=== PATIENT | female | born 1950 | race Caucasian/White ===

== ENCOUNTER 2021-01-18 09:06 | Outpatient (REF) | payer MEDICARE, SELFPAY ==
--- NOTE | ~2021-01-18 | MM_ITS ---
EXAMINATION: MM SCREENING DIGITAL BREAST TOMOSYNTHESIS, BILATERAL CLINICAL INFORMATION: Screening. Asymptomatic. The lifetime risk of breast cancer based on the Tyrer-Cuzick Model is 3.4%. COMPARISON: Mammography: May 28, 2019 and studies dating back to May 25, 2010 TECHNIQUE: Digital breast tomosynthesis is performed in both the craniocaudal and mediolateral oblique views along with computer-aided detection (CAD). Synthesized 2D images are generated from the tomosynthesis. FINDINGS: The breasts are almost entirely fatty (ACR BI-RADS breast composition Category a). There are no significant masses, abnormal calcifications, or other abnormalities. MM/MM tomosynthesis screening BI IMPRESSION: There are no significant changes from prior study. ASSESSMENT: BI-RADS 1: Negative RECOMMENDATION: Routine annual mammography screening. This patient's information was entered into a reminder system with a target due date for their next mammogram.
--- NOTE | ~2021-01-18 | MM_ITS ---
EXAMINATION: BONE DENSITOMETRY CLINICAL INDICATION: History of osteopenia. Other specified disorders of bone density and structure. Postmenopausal. COMPARISON: Previous BD dated 01/19/2018 and baseline BD dated 01/06/2013. TECHNIQUE: Using a IAT-Auto DXA System (software version: 13.1) manufactured by [email or web address], dual-energy x-ray absorptiometry was performed of the lumbar spine and left hip. The images are of good technical quality. Summary results are attached. FINDINGS: AP SPINE L1-L4: Current: BMD 1.050 g/cm2, Z-score -0.1, T-score 1.1, osteopenia, 9.6% increase from previous, 3.2% decrease from baseline (<5% change is not significant). Prior: BMD 0.958 g/cm2. Baseline: BMD 1.085 g/cm2. LEFT FEMUR, NECK: Current: BMD 0.711 g/cm2, Z-score -1.0, T-score -2.4, osteopenia. Prior: BMD 0.750 g/cm2. Baseline: BMD 0.820 g/cm2. LEFT FEMUR, TOTAL: Current: BMD 0.793 g/cm2, Z-score -0.6, T-score -1.7, osteopenia, 3.3% decrease from previous, 10.4% decrease from baseline (<5% change is not significant). Prior: BMD 0.820 g/cm2. Baseline: BMD 0.885 g/cm2. IDENTIFIED RISK FACTORS: Family history, (parent hip fracture). History of fracture, (adult). Anticonvulsant. Height loss. Recurrent falls. Renal disease. Bilateral oophorectomy. Hysterectomy. HISTORY OF FRACTURE: Ribs. MEDICATIONS: Calcium or multivitamin. Vitamin D. MM/XR DEXA axial skeleton IMPRESSION: 1. DIAGNOSIS: Osteopenia based on the lowest T-score value of -2.4 in the femoral neck applying World Health Organization criteria. 2. 10-YEAR FRACTURE RISK PREDICTION, FRAX: Major osteoporotic fracture (clinical spine, forearm, hip or shoulder) 33.0%. Hip fracture 13.9%. 3. Treatment Recommendations: NOF guidelines recommend consideration for treatment in postmenopausal women and men age 50 and older presenting with the following: -A hip or vertebral (clinical or morphometric) fracture. -T-score less than or equal to -2.5 at the femoral neck or spine after appropriate evaluation to exclude secondary causes. -Low bone mass at the hip or spine and a 10-year fracture probability by FRAX of greater than or equal to 3% for hip fracture or greater than or equal to 20% for major osteoporotic fracture based on the [place] adapted WHO algorithm. 4. Other Recommendations: All treatment decisions require clinical judgment and consideration of individual patient factors, including patient preferences, comorbidities, previous drug use, risk factors not captured in the FRAX model (e.g. frailty, falls, vitamin D deficiency, increased bone turnover, interval significant decline in bone density) and possible under or overestimation of fracture risk by FRAX. Additional medical evaluation for secondary cause of low bone mineral density may be appropriate. FUTURE SCAN RECOMMENDATION: People with diagnosed cases of osteoporosis or at high risk for fracture should have regular bone mineral density tests. For patients eligible for Medicare, routine testing is allowed once every 2 years. The testing frequency can be increased to one year for patients who have rapidly progressing disease, those who are receiving or discontinuing medical therapy to restore bone mass, or have additional risk factors.
== END 2021-01-18 09:07 | disposition home or self-care (01) ==
LOC: HO.MAMMO 09:06
PROVIDERS: PCP Nurse Practitioner Family; Visit Provider Nurse Practitioner Family
DX: Z12.31 Encounter for screening mammogram for malignant neoplasm of breast (principal); Z13.820 Encounter for screening for osteoporosis; Z78.0 Asymptomatic menopausal state; M85.80 Other specified disorders of bone density and structure, unspecified site
CPT/HCPCS: 77063; 77067; 77080

== ENCOUNTER 2021-06-27 11:21 | Outpatient (REF) | payer MEDICARE, SELFPAY ==
--- NOTE | ~2021-06-27 | US_ITS ---
EXAMINATION: US RETROPERITONEAL LIMITED (RENAL ONLY) CLINICAL INFORMATION: Chronic kidney disease. COMPARISON: None TECHNIQUE: Real-time imaging of the kidneys. FINDINGS: RIGHT KIDNEY: 11.4 x 5.1 x 5.5 cm (SAG x AP x TRV). The kidney is normal in size, contour, and echogenicity. Renal cortical thickness is normal. No calculi or focal parenchymal lesions. No hydronephrosis. There is mild pelvic fullness. LEFT KIDNEY: 3.3 x 2.2 x 1.8 cm (SAG x AP x TRV). The kidneys are atrophic and small. No calculi or focal parenchymal lesions. No hydronephrosis. US/US renal BI IMPRESSION: Small atrophic left kidney. The right kidney is unremarkable except for mild fullness.
[2021-06-27 13:59] LABS: Hematocrit 43.1 % (37.0-47.0); Hemoglobin 14.1 g/dl (12.0-16.0); Mean Corpuscular HGB Conc 32.7 g/dl (31.0-35.0); Mean Platelet Volume 9.9 fL (9.4-12.3); Platelet Count 231 X10*3/uL (160-400); Red Cell Distribution Width 13.2 % (11.0-16.0); White Blood Count 4.4 X10*3/uL (4.8-10.8)
[2021-06-27 14:11] LABS: Appearance Urine CLEAR; Color Urine YELLOW; Glucose Urine UA NEG (NEG); Leukocyte Esterase Urine 2+ (NEG); Nitrite Urine NEG (NEG); Specific Gravity - Urine 1.025 (1.005-1.025); Urine Blood NEG (NEG); Urine Ketones NEG (NEG); Urine Protein NEG (NEG-TRACE)
[2021-06-27 14:14] LABS: Alanine Aminotransferase 20 U/L (0-31); Albumin Level 4.1 g/dL (3.5-5.0); Alkaline Phosphatase 73 U/L (39-117); Anion Gap 13 (12-20); Aspartate Amino Transferase 23 U/L (5-31); Bilirubin Total 0.7 mg/dL (0.0-1.0); Blood Urea Nitrogen 22 mg/dL (9-16); Calcium 9.3 mg/dL (8.4-10.2); Carbon Dioxide 26 mmol/L (22-29); Chloride 106 mmol/L (96-108); Estimated Glomerular Filt Rate 38; Glucose Random 89 mg/dL (60-115); Potassium 4.6 mmol/L (3.3-5.1); Sodium 140 mmol/L (135-145); Total Protein 7.3 g/dL (6.5-8.0)
[2021-06-27 14:30] LABS: Creatinine Urine 163.54 mg/dL; Protein/Creatinine Ratio, Ur 0.08 (<0.2); Total Protein Urine Random 13 mg/dL (<12)
[2021-06-27 14:43] LABS: Bacteria Urine 1+ /LPF; RBC Urine 0 /HPF (0); Squamous Epithelial Cell Urine 1+ /LPF; WBC Urine 30-49 /HPF (0-4)
== END 2021-06-27 11:22 | disposition home or self-care (01) ==
LOC: HO.HMGCX 11:21
PROVIDERS: Visit Provider Internal Medicine Hypertension Specialist
DX: N18.31 Chronic kidney disease, stage 3a (principal)
CPT/HCPCS: 36415; 76775; 80053; 81001; 84156; 85027

== ENCOUNTER 2021-10-03 08:53 | Outpatient (REF) | payer MEDICARE, SELFPAY ==
[2021-10-03 11:59] LABS: Estimated Glomerular Filt Rate 39
[2021-10-03 12:57] LABS: Total Volume 24 Hour Urine 2025 mL
[2021-10-03 12:58] LABS: Creatinine (CrCl) 1.33 mg/dL (0.5-1.4)
[2021-10-03 13:03] LABS: Creatinine Clearance 58.2 mL/min (85-125); Creatinine, 24Hr Urine 1.1 G/Day (1.0-2.0)
== END 2021-10-03 08:54 | disposition home or self-care (01) ==
LOC: HO.HMGCLDS 08:53
PROVIDERS: Visit Provider Internal Medicine Hypertension Specialist
DX: N18.32 Chronic kidney disease, stage 3b (principal)
CPT/HCPCS: 36415; 82565; 82575

== ENCOUNTER 2022-04-05 07:38 | Outpatient (REF) | payer MEDICARE, SELFPAY ==
--- NOTE | ~2022-04-05 | MM_ITS ---
EXAMINATION: MM SCREENING DIGITAL BREAST TOMOSYNTHESIS, BILATERAL CLINICAL INFORMATION: Screening. Asymptomatic. The lifetime risk of breast cancer based on the Tyrer-Cuzick Model is 3%. COMPARISON: Mammography: 01/18/2021, 05/28/2019, 04/17/2018 TECHNIQUE: Digital breast tomosynthesis is performed in both the craniocaudal and mediolateral oblique views along with computer-aided detection (CAD). Synthesized 2D images are generated from the tomosynthesis. FINDINGS: There are scattered areas of fibroglandular density (ACR BI-RADS breast composition Category b). There are no significant masses, abnormal calcifications, or other abnormalities. Breast tissue composition borders on predominantly fatty. Background stromal and fibroglandular densities are similar to prior studies. No architectural abnormality. There are scattered round and rim predominantly dermal calcifications again seen. No significant changes. MM/MM tomosynthesis screening BI IMPRESSION: No mammographic evidence of malignancy. ASSESSMENT: BI-RADS 2: Benign RECOMMENDATION: Routine annual mammography screening. This patient's information was entered into a reminder system with a target due date for their next mammogram.
== END 2022-04-05 07:39 | disposition home or self-care (01) ==
LOC: HO.MAMMO 07:38
PROVIDERS: Visit Provider Nurse Practitioner Family
DX: Z12.31 Encounter for screening mammogram for malignant neoplasm of breast (principal)
CPT/HCPCS: 77063; 77067

== ENCOUNTER 2022-05-01 15:22 | Emergency (ER) | payer MEDICARE, SELFPAY ==
--- NOTE | ~2022-05-01 | CT_ITS ---
EXAMINATION: CT HEAD WITHOUT CONTRAST CT FACIAL BONES WITHOUT CONTRAST CT CERVICAL SPINE WITHOUT CONTRAST CLINICAL INFORMATION: Trauma. Fall. COMPARISON: MRI brain 05/17/2012 TECHNIQUE: Imaging was performed from the skull base to vertex without intravenous administration of contrast. In addition, helical noncontrast CT imaging was acquired through the cervical spine and facial bones and source images were reviewed along with axial reconstructions and sagittal and coronal MPRs. [This CT examination was performed using dose optimization techniques as appropriate, variously including the following: *Automated exposure control *Adjustment of mA and/or kV according to patient size (this includes techniques or standardized protocols for targeted exams where dose is matched to indication/reason for exam; i.e. 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 No intracranial mass, hemorrhage, or midline shift is visualized. There is generalized global volume loss. There is mild prominence of the ventricles and the sulci . There is mild hypodensity of the periventricular white matter due to chronic small vessel ischemic disease. There are vascular calcifications of the internal carotid arteries bilaterally. No extra-axial collections are identified. FACIAL BONES: There is a comminuted fracture of the right maxillary sinus. Mildly displaced fracture of the anterior, lateral and medial valladares of the maxillary sinus. There is hemo sinus with air-fluid level present in the right maxillary sinus. The anterior lateral wall fracture of the sinus extends through the base of the frontozygomatic articulation. There is fracture of the floor of the right orbit anteriorly. This involves the orbital rim. This fracture is minimally displaced. There is also a small fracture of the posterior wall of the orbit. There is a minimally displaced fracture of the lateral wall the right orbit as well. This fracture extends to the frontozygomatic articulation. This fracture extends into the lateral and anterior wall the right frontal sinus. The fracture does not appear to extend intracranially. There is no herniation of intraorbital fat through the fracture and no entrapment of the extraocular muscles. The orbital globes and retrobulbar structures are normal. There is a slightly displaced fracture of the right zygomatic arch. Pterygoid plates are intact. Mandible and TMJ joints are normal. No fracture of the nasal bones. CERVICAL SPINE: There is no evidence of acute cervical spine fracture. Vertebral bodies remain normal in height. There is multilevel degenerative spondylosis of disc height narrowing, vertebral endplate spurs and facet joint arthrosis. No prevertebral soft tissue swelling. Large right lobe of thyroid measuring 6 cm AP with heterogeneous density of the right lobe. CT/CT cervical spine wo IV con IMPRESSION: 1. No acute intracranial abnormality. 2. Complex fracture of the facial bones involving the right orbit, right maxillary sinus and right zygomatic arch and right frontal sinus. 3. No acute abnormality of the cervical spine. 4. Enlarged right lobe of thyroid. Nonemergent thyroid ultrasound would be helpful for further evaluation.
--- NOTE | ~2022-05-01 | CT_ITS ---
EXAMINATION: CONTRAST-ENHANCED CT OF THE CHEST; CONTRAST-ENHANCED CT OF THE ABDOMEN AND PELVIS INDICATION: Fall, anterior chest wall pain COMPARISON: 05/06/2012 TECHNIQUE: 85 mL Omnipaque 350 IV contrast was utilized. Multidetector helical imaging was performed through the chest, abdomen, and pelvis. Coronal and sagittal reformatted images were created at the technologist workstation. DLP: 1027 mGy-cm DOSE LOWERING TECHNIQUES: This CT examination was performed using dose optimization techniques as appropriate, variously including the following: - Automated exposure control - Adjustment of mA and/or kV according to patient size (this includes techniques or standardized protocols for targeted exams were dose is matched to indication/reason for exam; i.e. extremities or head) - Use of iterative reconstruction technique FINDINGS: Chest: Mild subsegmental atelectasis bilaterally without additional consolidation. No pneumothorax or pleural effusion. Enlarged heterogeneous right thyroid lobe is redemonstrated. There are subcentimeter mediastinal lymph nodes within the range of normal variation. Cardiac size is within normal limits; no pericardial effusion. The thoracic aorta is tortuous. No axillary lymphadenopathy is present. There is slight cortical irregularity of the anterior left second rib suggesting fracture in the setting of trauma. Multiple degenerative endplate changes noted in the spine. Abdomen/Pelvis: The liver is homogeneous in attenuation without intrahepatic biliary ductal dilatation. Cholelithiasis is noted. The spleen, pancreas, and adrenal glands are within normal limits. Left kidney is atrophic. Cortical scarring in the lower pole of the right kidney. No obstructing renal or ureteral calculi are present. The urinary bladder is unremarkable. Status post hysterectomy. The small and large bowel are unremarkable without evidence of obstruction or pericolonic inflammatory change. No free fluid or free air is identified. Atherosclerotic calcifications noted. No retroperitoneal or pelvic lymphadenopathy is seen. Degenerative changes are noted in the spine. CT/CT abdomen pelvis w IV con IMPRESSION: 1. Slight cortical irregularity of the anterior left second rib suggesting nondisplaced fracture in the setting of trauma. 2. Enlarged, heterogeneous right thyroid lobe redemonstrated, which may be further assessed with ultrasound. 3. Cholelithiasis. 4. Atrophic left kidney.
--- NOTE | ~2022-05-01 | XR_ITS ---
EXAMINATION: XR hand wrist LT, XR hand wrist RT CLINICAL INFORMATION: Reason for Exam Fall COMPARISON: None. TECHNIQUE: 3 views bilateral hand and wrist FINDINGS: Right hand and wrist: Healed fracture deformity of the base of the fifth metacarpal. No acute fracture or dislocation. Joint spaces throughout the hand and wrist are maintained. No chondrocalcinosis or erosions. Slight ulnar subluxation of the thumb at the MCP joint consistent with age indeterminant laxity or injury of the radial collateral ligament. Minimal first CMC osteoarthritic change. Left hand and wrist: No acute fracture or dislocation. Joint spaces throughout the hand and wrist appear maintained. No erosions. No chondrocalcinosis. Small soft tissue calcification overlying the dorsal carpus on the lateral view, which may be degenerative or due to remote injury. Bandaging material overlies the radial aspect of the thenar eminence region. XR/XR hand wrist LT IMPRESSION: 1. No acute fracture or dislocation identified. 2. Chronic/healed fracture of the base of the right fifth metacarpal.
--- NOTE | ~2022-05-01 | XR_ITS ---
EXAMINATION: XR forearm RT 2V, XR shoulder RT min 2V CLINICAL INFORMATION: Reason for Exam forearm pain shoulder pain status post fall COMPARISON: None. TECHNIQUE: 3 views right shoulder; AP and lateral views right forearm FINDINGS: Right shoulder: No acute fracture or dislocation. The glenohumeral joint space is maintained. Minimal inferior glenoid rim marginal osteophyte formation. AC joint is congruent and intact with minimal subchondral sclerosis. Visualized right lung is grossly clear. Right forearm: Subtle trabecular sclerosis at the radial neck likely seen on the single view. This could represent mildly impacted fracture, uncertain acuity. Correlate clinically with symptoms related referable to the radial head/neck. No additional fracture or dislocation. XR/XR shoulder RT min 2V IMPRESSION: 1. No fracture or dislocation at the shoulder. 2. Subtle trabecular sclerosis at the radial neck, which could represent a trabecular impaction injury/fracture, uncertain acuity. Correlate clinically with symptoms referable to the region of the radial head/neck and consider dedicated elbow radiographs as indicated.
--- NOTE | ~2022-05-01 | XR_ITS ---
EXAMINATION: XR hand wrist LT, XR hand wrist RT CLINICAL INFORMATION: Reason for Exam Fall COMPARISON: None. TECHNIQUE: 3 views bilateral hand and wrist FINDINGS: Right hand and wrist: Healed fracture deformity of the base of the fifth metacarpal. No acute fracture or dislocation. Joint spaces throughout the hand and wrist are maintained. No chondrocalcinosis or erosions. Slight ulnar subluxation of the thumb at the MCP joint consistent with age indeterminant laxity or injury of the radial collateral ligament. Minimal first CMC osteoarthritic change. Left hand and wrist: No acute fracture or dislocation. Joint spaces throughout the hand and wrist appear maintained. No erosions. No chondrocalcinosis. Small soft tissue calcification overlying the dorsal carpus on the lateral view, which may be degenerative or due to remote injury. Bandaging material overlies the radial aspect of the thenar eminence region. XR/XR hand wrist RT IMPRESSION: 1. No acute fracture or dislocation identified. 2. Chronic/healed fracture of the base of the right fifth metacarpal.
--- NOTE | ~2022-05-01 | XR_ITS ---
EXAMINATION: XR forearm RT 2V, XR shoulder RT min 2V CLINICAL INFORMATION: Reason for Exam forearm pain shoulder pain status post fall COMPARISON: None. TECHNIQUE: 3 views right shoulder; AP and lateral views right forearm FINDINGS: Right shoulder: No acute fracture or dislocation. The glenohumeral joint space is maintained. Minimal inferior glenoid rim marginal osteophyte formation. AC joint is congruent and intact with minimal subchondral sclerosis. Visualized right lung is grossly clear. Right forearm: Subtle trabecular sclerosis at the radial neck likely seen on the single view. This could represent mildly impacted fracture, uncertain acuity. Correlate clinically with symptoms related referable to the radial head/neck. No additional fracture or dislocation. XR/XR forearm RT 2V IMPRESSION: 1. No fracture or dislocation at the shoulder. 2. Subtle trabecular sclerosis at the radial neck, which could represent a trabecular impaction injury/fracture, uncertain acuity. Correlate clinically with symptoms referable to the region of the radial head/neck and consider dedicated elbow radiographs as indicated.
[2022-05-01 15:44] VITALS: BP 134/87; PULSE 61; O2SAT 98
--- NOTE | 2022-05-01 16:32 | ECG_ITS ---
Test Reason : FALL Blood Pressure : / mmHG Vent. Rate : 064 BPM Atrial Rate : 064 BPM P-R Int : 160 ms QRS Dur : 094 ms QT Int : 456 ms P-R-T Axes : 055 030 084 degrees QTc Int : 470 ms Normal sinus rhythm Possible Left atrial enlargement Nonspecific ST abnormality Abnormal ECG When compared with ECG of 16-MAY-2012 07:37, QT has lengthened Referred By: Lizz Monk Electronically Signed By:ROSSANA KRAUSE
--- NOTE | 2022-05-01 16:57 | ED.GENADULT ---
HPI - General Adult General Chief complaint: Fall <Lizz Monk NP - Last Filed: 05/01/22 21:49> Stated complaint: Fall <Lizz Monk NP - Last Filed: 05/01/22 21:49> Time Seen by Provider: 05/01/22 15:48 <Lizz Monk NP - Last Filed: 05/01/22 21:49> Source: patient, family and EMS <Lizz Monk NP - Last Filed: 05/01/22 21:49> Mode of arrival: EMS <Lizz Monk NP - Last Filed: 05/01/22 21:49> Limitations: no limitations <Lizz Monk NP - Last Filed: 05/01/22 21:49> History of Present Illness HPI narrative: This is a 71-year-old female with a past medical history of chronic kidney disease stage 3, stroke, neuropathy, who comes into the emergency department status post a fall while walking climbing . Upon tripping patient stretched her arms to brace her fall and suffered a head strike. a received laceration on her left palm and says the is bruising on her right wrist. She also sustained a laceration to the bridge of her nose and 2 lacerations 1 parallel to her right eyebrow and 1 vertical to her right eyebrow.Patient denies loss of consciousness, dizziness, weakness, fever, chills, feeling sick prior to falling. Stating strictly mechanical fall. Presently patient denies headache, changes in vision, fatigue, or nausea. No chest pain, no dizziness, no shortness of breath. <Lizz Monk NP - Last Filed: 05/01/22 21:49> Location: head and upper extremity (wrists) <Lizz Monk NP - Last Filed: 05/01/22 21:49> Severity: moderate <TERRANCE Angulo Last Filed: 05/01/22 21:49> Severity scale (1-10): 5 <Lizz Monk NP - Last Filed: 05/01/22 21:49> Quality: aching <Lizz Monk NP - Last Filed: 05/01/22 21:49> Pain Consistency: constant <Lizz Monk NP - Last Filed: 05/01/22 21:49> Relieving factors: none <Lizz Monk NP - Last Filed: 05/01/22 21:49> Exacerbating factors: none <Lizz Monk NP - Last Filed: 05/01/22 21:49> Associated symptoms: denies other symptoms <Lizz Monk NP - Last Filed: 05/01/22 21:49> Treatments prior to arrival: none <Lizz Monk NP - Last Filed: 05/01/22 21:49> Related Data Home medications: Home Medications Medication Instructions Recorded Confirmed aspirin 81 mg tablet,delayed 81 mg PO DAILY 03/08/21 release (Adult Aspirin Regimen) bupropion HCl 300 mg 24 hr tablet, 300 mg PO DAILY 03/08/21 extended release calcium carbonate 500 mg calcium 500 mg PO DAILY 03/08/21 (1,250 mg) tablet (Calcium 500) cholecalciferol (vitamin D3) 25 25 mcg PO DAILY 03/08/21 mcg (1,000 unit) capsule gabapentin 100 mg capsule 100 - 300 mg PO BEDTIME 03/08/21 sertraline 50 mg tablet 50 mg PO DAILY 03/08/21 simvastatin 20 mg tablet 20 mg PO QPM 03/08/21 Previous Rx's Medication Instructions Recorded doxycycline hyclate 100 mg tablet 100 mg PO BID #14 tabs 03/08/21 <Lizz Monk NP - Last Filed: 05/01/22 21:49> Allergies/adverse reactions: Allergies Allergy/AdvReac Type Severity Reaction Status Date / Time NSAIDS (Non-Steroidal Allergy Unknown CHRONIC Verified 03/08/21 13:54 Anti-Inflamma KIDNEY [NSAIDS (NON-STEROIDAL DISEASE, ANTI-INFLAMMA] UNABLE TO TAKE morphine [MORPHINE] AdvReac Mild VOMITING Verified 03/08/21 13:54 From DILAUDID AdvReac Mild VOMITING Uncoded 04/12/20 14:50 <Lizz Monk NP - Last Filed: 05/01/22 21:49> Review of Systems Review of Systems: Constitutional: No Weight loss, No Fever, No Chills ENT/Mouth: No Ear Pain, No Nasal Congestion, No Sinus Pain, No Hoarseness, No sore throat, No Rhinorrhea, No Swallowing Difficulty Cardiovascular: No Chest Pain, No SOB, No dizziness Respiratory: No Cough, No Sputum, No Wheezing Gastrointestinal: No Nausea, No Vomiting, No Diarrhea, No Constipation, No Abdominal pain Genitourinary: No Dysuria, No Urinary Frequency, No Hematuria, No Urinary Incontinence/retention, No Urgency, No Flank Pain Musculoskeletal: No joint pain, No Myalgias, No Joint Swelling Skin: No Rash, echymosis on right wrist, laceration on left palm, right forehead and above eyebrow Neuro: No Weakness, No Numbness, No Paresthesias <Lizz Monk NP - Last Filed: 05/01/22 21:49> Yes all other systems are reviewed and are negative <Lizz Monk NP - Last Filed: 05/01/22 21:49> Neurologic: Reports Abnormal speech present <Lizz Monk NP - Last Filed: 05/01/22 21:49> [facility] Past Medical History Attestation statement: The following information was validated with the patient. <Lizz Monk NP - Last Filed: 05/01/22 21:49> Source: old records reviewed and obtained from family <Lizz Monk NP - Last Filed: 05/01/22 21:49> Social History Social History: Social History Alcohol intake: current Alcohol intake frequency: a few times a month Patient Tobacco Use Status: Never used Tobacco Use of substances other than those prescribed or required for medical reasons: No Advance Directives: No Advance Directives Information Provided: Yes <Lizz Monk NP - Last Filed: 05/01/22 21:49> Physical Exam ED Vital Signs: Vital Signs - 24 hr 05/01/22 17:32 05/01/22 18:57 05/01/22 22:00 Temperature 96 F L 97.0 F Pulse Rate 69 74 68 Respiratory Rate 16 16 Blood Pressure 159/72 H 145/65 H 142/62 H Pulse Oximetry 100 98 97 Oxygen Delivery Method Room Air Room Air Room Air BMI result Body Mass Index 30.0 <Lizz Monk NP - Last Filed: 05/01/22 21:49> Vital Signs - 24 hr 05/01/22 17:32 05/01/22 18:57 05/01/22 22:00 Temperature 96 F L 97.0 F Pulse Rate 69 74 68 Respiratory Rate 16 16 Blood Pressure 159/72 H 145/65 H 142/62 H Pulse Oximetry 100 98 97 Oxygen Delivery Method Room Air Room Air Room Air BMI result Body Mass Index 30.0 <TAMIR Mccray - Last Filed: 05/01/22 22:55> Const General: cooperative, healthy appearing, comfortable and no acute distress <Lizz Monk NP - Last Filed: 05/01/22 21:49> Orientation/consciousness: patient oriented x3 <Lizz Monk NP - Last Filed: 05/01/22 21:49> HENMT Head: Yes normal to inspection, Yes normocephalic, No Mejía's sign, No contusion, Yes laceration and No raccoon eyes <Lizz Monk NP - Last Filed: 05/01/22 21:49> Ears: hearing grossly normal bilaterally and TM's normal bilaterally <Lizz Monk NP - Last Filed: 05/01/22 21:49> General nose exam: Normal external nose present, Normal nares present, Normal septum present, No nasal discharge present and Epistaxis present <Lizz Monk NP - Last Filed: 05/01/22 21:49> Face and sinus: Yes abrasion, No fluctuance, Yes laceration and No sinus tenderness <Lizz Monk NP - Last Filed: 05/01/22 21:49> Face images: 1. abrasion about 0.5 inch 2. 1 inch laceration 3. 0.5 inch laceration <Lizz Monk NP - Last Filed: 05/01/22 21:49> Mouth: Normal oral and palatal mucosa present, lip normal, tongue normal and moist mucous membranes <Lizz Monk NP - Last Filed: 05/01/22 21:49> Teeth and gingiva: dentition normal <Lizz Monk NP - Last Filed: 05/01/22 21:49> Throat: Yes posterior oropharynx normal, Yes tonsils normal and Yes uvula midline <TERRANCE Angulo Last Filed: 05/01/22 21:49> Eyes General: appearance normal, both eyes and all related structures <Lizz Monk NP - Last Filed: 05/01/22 21:49> Visual Sosa: abnormal by confrontation (vision changes on the Right) <Lizz Monk NP - Last Filed: 05/01/22 21:49> Alignment and Position: alignment normal <Lizz Monk NP - Last Filed: 05/01/22 21:49> Conjunctivae: conjunctivae normal <Lizz Monk NP - Last Filed: 05/01/22 21:49> Sclerae: sclerae normal <Lizz Monk NP - Last Filed: 05/01/22 21:49> Corneas: corneas normal <Lizz Monk NP - Last Filed: 05/01/22 21:49> Pupils: Equal, round and reactive pupils present and Pupils normal by confrontation <Lizz Monk NP - Last Filed: 05/01/22 21:49> EOM: EOM abnormal (painful upon movement of right eye) <Lizz Monk NP - Last Filed: 05/01/22 21:49> Direct Ophthalmoscopy: normal light reflex and No no photophobia <Lizz Monk NP - Last Filed: 05/01/22 21:49> Neck Neck: Yes normal visual inspection <Lizz Monk NP - Last Filed: 05/01/22 21:49> Chest Other: Pain with palpation to right anterior chest wall no signs of flail chest. <TAMIR Mccray - Last Filed: 05/01/22 22:55> Chest palpation & inspection: normal inspection of the chest <Lizz Monk NP - Last Filed: 05/01/22 21:49> Resp Effort & Inspection: normal respiratory effort, not labored and no respiratory distress <Lizz Monk NP - Last Filed: 05/01/22 21:49> Auscultation: clear to auscultation bilaterally, no crackles, no rales, no rhonchi, no wheezes, breath sounds present and lung sounds not diminished <Lizz Monk NP - Last Filed: 05/01/22 21:49> Cardio Palpation: normal PMI <Lizz Monk NP - Last Filed: 05/01/22 21:49> Rate: regular rate <Lizz Monk NP - Last Filed: 05/01/22 21:49> Rhythm: regular rhythm <Lizz Monk NP - Last Filed: 05/01/22 21:49> Heart sounds: S1 normal heart sound present and S2 normal heart sound present <Lizz Monk NP - Last Filed: 05/01/22 21:49> Peripheral pulses: Peripheral pulses 2+ throughout <TAMIR Mccray - Last Filed: 05/01/22 22:55> GI Inspection: Yes normal to inspection <Lizz Monk NP - Last Filed: 05/01/22 21:49> Palpation (GI): Soft to palpation, nontender, no guarding and not rigid <Lizz Monk NP - Last Filed: 05/01/22 21:49> Auscultation: normal bowel sounds <Lizz Monk NP - Last Filed: 05/01/22 21:49> Back/Spine/Pelvis Cervical Spine: normal cervical lordosis, cervical ROM normal, collar present, No cervical muscular tenderness, No pain with cervical ROM, No Cervical spine scars present, No cervical spasm, No Cervical spine tenderness and No step off deformity <Venancio Page [place] - Last Filed: 05/01/22 22:55> Skin General skin exam: no rashes or lesions noted <Lizz Monk NP - Last Filed: 05/01/22 21:49> Trauma: laceration (as stated above) <Lizz Monk NP - Last Filed: 05/01/22 21:49> Neuro General: patient oriented x3, gait normal, tone normal and moves all extremities <Lizz Monk NP - Last Filed: 05/01/22 21:49> Cranial nerves: Yes CN's II-XII intact bilaterally and Yes Equal, round and reactive pupils present <Lizz Monk NP - Last Filed: 05/01/22 21:49> Cognition (Neuro): normal cognition <Lizz Monk NP - Last Filed: 05/01/22 21:49> Speech: Abnormal speech present <Lizz Monk NP - Last Filed: 05/01/22 21:49> Motor exam (neuro): 5/5 motor strength present throughout <Lizz Monk LAND DEVELOPMENT MANAGER - Last Filed: 05/01/22 21:49> Sensory Exam: Normal double simultaneous stimulation for sensation <Lizz Monk NP - Last Filed: 05/01/22 21:49> Extrem General: Yes normal to inspection <Lizz Monk NP - Last Filed: 05/01/22 21:49> Psych Appearance: grossly normal <Lizz Monk NP - Last Filed: 05/01/22 21:49> Mental Status: mental status grossly normal <Lizz Monk LAND DEVELOPMENT MANAGER - Last Filed: 05/01/22 21:49> Speech and movement: Normal speech and movement present <Lizz Monk NP - Last Filed: 05/01/22 21:49> Affect: normal affect <Lizz Monk NP - Last Filed: 05/01/22 21:49> Attitude: cooperative <Lizz Monk NP - Last Filed: 05/01/22 21:49> Thought process: Normal thought process present <Lizz Monk NP - Last Filed: 05/01/22 21:49> Thought content: Normal thought content present <Lizz Monk NP - Last Filed: 05/01/22 21:49> Course Course Course Narrative: Patient was seen for a witnessed fall that did not result from loss of consciousness. CT scan of her head and neck are obtained and bilateral wrist. Pain management ordered. BP elevated most likely due to pain, will continue to monitor. 1649: X-ray of bilateral wrists are negative. CT of head and neck still pending. EKG pending. CT shows fractures in facial bones, pain with EOM to the right concerning for nerve entrapment. Additional labs and imagine ordered and pending. Sign out given to Nancy GARNETT. <Lizz Monk LAND DEVELOPMENT MANAGER - Last Filed: 05/01/22 21:49> Patient was seen for a witnessed fall that did not result in loss of consciousness. CT scan of her head and neck are obtained and bilateral wrist. Pain management ordered. BP elevated most likely due to pain, will continue to monitor. 1649: X-ray of bilateral wrists are negative. CT of head and neck still pending. EKG pending. CT shows fractures in facial bones, pain with EOM to the right concerning for nerve entrapment. Additional labs and imagine ordered and pending. Sign out given to Nancy GARNETT. <TAMIR Mccray - Last Filed: 05/01/22 22:55> Reevaluation(s) Reevaluation #1: I personally went to go evaluate this patient, patient is noted to have swelling to the right side of the face with raccoon eyes predominant on the right-hand side, she has 2 lacerations to the right forehead area 1 to the lateral aspect of the eyebrow and 1 just above it. Sutures in place, not bleeding. Patient has significant pain with palpation overlying the right forehead region, over the bridge of the nose, zygomatic region and around the area of the maxillary sinuses. No nasal septal hematoma noted. Patient has painful extraocular movements on the right-hand side particularly with movement to the lateral and medial aspects. X-ray of the shoulder with a trabecular impaction of the radial concerning for fracture. Patient has point tenderness to this area. Patient reports painful range of motion to right shoulder, 2+ radial pulses equal bilateral, normal capillary refill, no wrist drop. RRR. Lungs clear. GCS is 15. Neuro nonfocal. X-rays of bilateral hands with no acute fractures or dislocations. Based off mechanism of injury and patient's story laboratory studies were obtained I also ordered additional imaging to rule out rib fractures, or intra-abdominal processes. As this hospital does not have ENT or Oral maxillofacial I will reach out to [facility] for trauma transfer on this patient. CBC and chemistry with no acute findings or findings requiring intervention. Coags within normal limits. Pending CT of the abdomen and pelvis and chest. Waiting from call back from [facility] <TAMIR Mccray - Last Filed: 05/01/22 22:55> Time: 22:07 <TAMIR Mccray - Last Filed: 05/01/22 22:55> Reevaluation #2: Trop negative ekg non ischemic i do not suspect preceding cardiac event. Patient will be transferred to [facility]'s Emergency Department due to trauma, and complex facial fractures, accepting provider Dr. Patterson <TAMIR Mccray - Last Filed: 05/01/22 22:55> Time: 22:20 <TAMIR Mccray - Last Filed: 05/01/22 22:55> Reevaluation #3: CT of the chest, abdomen pelvis obtained. Images will be sent to [facility] via red image transfer. Ambulance transportation set up for patient to get trauma transferred to [facility] <TAMIR Mccray - Last Filed: 05/01/22 22:55> Time: 22:53 <TAMIR Mccray - Last Filed: 05/01/22 22:55> Medical Decision Making Lab Data Result diagrams: : 05/01/22 21:06 05/01/22 21:06 <Lizz Monk NP - Last Filed: 05/01/22 21:49> Labs: Lab Results 05/01/22 05/01/22 05/01/22 Range/Units 19:23 21:06 21:06 WBC 7.7 (4.8-10.8) X10*3/uL RBC 4.38 (4.20-5.50) X10*6/uL Hgb 13.6 (12.0-16.0) g/dl Hct 40.9 (37.0-47.0) % MCV 93.4 (80.0-98.0) fL MCH 31.1 (27.0-33.0) pg MCHC 33.3 (31.0-35.0) g/dl RDW 13.0 (11.0-16.0) % Plt Count 196 (160-400) X10*3/uL MPV 9.5 (9.4-12.3) fL Immature Gran % (Auto) 0.4 (0.0-0.4) % Neut % (Auto) 78.7 H (45-73) % Lymph % (Auto) 14.5 L (20-40) % Sibley % (Auto) 5.3 (2-11) % Eos % (Auto) 0.3 (0-4) % Baso % (Auto) 0.8 (0-2) % Lymph # (Auto) 1.1 L (1.2-4.9) X10*3/uL Sibley # (Auto) 0.4 (0.1-1.2) X10*3/uL Eos # (Auto) 0.0 (0.0-0.4) X10*3/uL Baso # (Auto) 0.1 (0.0-0.2) X10*3/uL Abs Immat Gran (auto) 0.03 (0.00-0.03) X10*3/uL Absolute Neuts (auto) 6.0 (2.0-8.3) x10*3/uL Absolute Nucleated RBC 0.000 (0.0-0.012) X10*3/uL Nucleated RBC % (auto) 0.0 (0.0-0.2) /100WBC PT (10.0-13.1) SEC INR (0.9-1.1) Sodium 140 (135-145) mmol/L Potassium 4.1 (3.3-5.1) mmol/L Chloride 106 (96-108) mmol/L Carbon Dioxide 21 L (22-29) mmol/L Anion Gap 17 (12-20) BUN 23 H (9-16) mg/dL Creatinine 1.23 (0.5-1.4) mg/dL Estim Creat Clear Calc 41.5 Estimated GFR 43 Random Glucose 99 (60-115) mg/dL Calcium 9.1 (8.4-10.2) mg/dL Total Bilirubin 0.5 (0.0-1.0) mg/dL AST 26 (5-31) U/L ALT 19 (0-31) U/L Alkaline Phosphatase 72 (39-117) U/L Total Creatine Kinase 188 H (26-140) U/L Troponin I High Sens 4.0 (<3.5-17.0) ng/L Total Protein 7.0 (6.5-8.0) g/dL Albumin 4.1 (3.5-5.0) g/dL 05/01/22 Range/Units 21:06 WBC (4.8-10.8) X10*3/uL RBC (4.20-5.50) X10*6/uL Hgb (12.0-16.0) g/dl Hct (37.0-47.0) % MCV (80.0-98.0) fL MCH (27.0-33.0) pg MCHC (31.0-35.0) g/dl RDW (11.0-16.0) % Plt Count (160-400) X10*3/uL MPV (9.4-12.3) fL Immature Gran % (Auto) (0.0-0.4) % Neut % (Auto) (45-73) % Lymph % (Auto) (20-40) % Sibley % (Auto) (2-11) % Eos % (Auto) (0-4) % Baso % (Auto) (0-2) % Lymph # (Auto) (1.2-4.9) X10*3/uL Sibley # (Auto) (0.1-1.2) X10*3/uL Eos # (Auto) (0.0-0.4) X10*3/uL Baso # (Auto) (0.0-0.2) X10*3/uL Abs Immat Gran (auto) (0.00-0.03) X10*3/uL Absolute Neuts (auto) (2.0-8.3) x10*3/uL Absolute Nucleated RBC (0.0-0.012) X10*3/uL Nucleated RBC % (auto) (0.0-0.2) /100WBC PT 12.2 (10.0-13.1) SEC INR 1.1 (0.9-1.1) Sodium (135-145) mmol/L Potassium (3.3-5.1) mmol/L Chloride (96-108) mmol/L Carbon Dioxide (22-29) mmol/L Anion Gap (12-20) BUN (9-16) mg/dL Creatinine (0.5-1.4) mg/dL Estim Creat Clear Calc Estimated GFR Random Glucose (60-115) mg/dL Calcium (8.4-10.2) mg/dL Total Bilirubin (0.0-1.0) mg/dL AST (5-31) U/L ALT (0-31) U/L Alkaline Phosphatase (39-117) U/L Total Creatine Kinase (26-140) U/L Troponin I High Sens (<3.5-17.0) ng/L Total Protein (6.5-8.0) g/dL Albumin (3.5-5.0) g/dL <Lizz Monk NP - Last Filed: 05/01/22 21:49> Lab Results 05/01/22 05/01/22 05/01/22 Range/Units 19:23 21:06 21:06 WBC 7.7 (4.8-10.8) X10*3/uL RBC 4.38 (4.20-5.50) X10*6/uL Hgb 13.6 (12.0-16.0) g/dl Hct 40.9 (37.0-47.0) % MCV 93.4 (80.0-98.0) fL MCH 31.1 (27.0-33.0) pg MCHC 33.3 (31.0-35.0) g/dl RDW 13.0 (11.0-16.0) % Plt Count 196 (160-400) X10*3/uL MPV 9.5 (9.4-12.3) fL Immature Gran % (Auto) 0.4 (0.0-0.4) % Neut % (Auto) 78.7 H (45-73) % Lymph % (Auto) 14.5 L (20-40) % Sibley % (Auto) 5.3 (2-11) % Eos % (Auto) 0.3 (0-4) % Baso % (Auto) 0.8 (0-2) % Lymph # (Auto) 1.1 L (1.2-4.9) X10*3/uL Sibley # (Auto) 0.4 (0.1-1.2) X10*3/uL Eos # (Auto) 0.0 (0.0-0.4) X10*3/uL Baso # (Auto) 0.1 (0.0-0.2) X10*3/uL Abs Immat Gran (auto) 0.03 (0.00-0.03) X10*3/uL Absolute Neuts (auto) 6.0 (2.0-8.3) x10*3/uL Absolute Nucleated RBC 0.000 (0.0-0.012) X10*3/uL Nucleated RBC % (auto) 0.0 (0.0-0.2) /100WBC PT (10.0-13.1) SEC INR (0.9-1.1) Sodium 140 (135-145) mmol/L Potassium 4.1 (3.3-5.1) mmol/L Chloride 106 (96-108) mmol/L Carbon Dioxide 21 L (22-29) mmol/L Anion Gap 17 (12-20) BUN 23 H (9-16) mg/dL Creatinine 1.23 (0.5-1.4) mg/dL Estim Creat Clear Calc 41.5 Estimated GFR 43 Random Glucose 99 (60-115) mg/dL Calcium 9.1 (8.4-10.2) mg/dL Total Bilirubin 0.5 (0.0-1.0) mg/dL AST 26 (5-31) U/L ALT 19 (0-31) U/L Alkaline Phosphatase 72 (39-117) U/L Total Creatine Kinase 188 H (26-140) U/L Troponin I High Sens 4.0 (<3.5-17.0) ng/L Total Protein 7.0 (6.5-8.0) g/dL Albumin 4.1 (3.5-5.0) g/dL 05/01/22 Range/Units 21:06 WBC (4.8-10.8) X10*3/uL RBC (4.20-5.50) X10*6/uL Hgb (12.0-16.0) g/dl Hct (37.0-47.0) % MCV (80.0-98.0) fL MCH (27.0-33.0) pg MCHC (31.0-35.0) g/dl RDW (11.0-16.0) % Plt Count (160-400) X10*3/uL MPV (9.4-12.3) fL Immature Gran % (Auto) (0.0-0.4) % Neut % (Auto) (45-73) % Lymph % (Auto) (20-40) % Sibley % (Auto) (2-11) % Eos % (Auto) (0-4) % Baso % (Auto) (0-2) % Lymph # (Auto) (1.2-4.9) X10*3/uL Sibley # (Auto) (0.1-1.2) X10*3/uL Eos # (Auto) (0.0-0.4) X10*3/uL Baso # (Auto) (0.0-0.2) X10*3/uL Abs Immat Gran (auto) (0.00-0.03) X10*3/uL Absolute Neuts (auto) (2.0-8.3) x10*3/uL Absolute Nucleated RBC (0.0-0.012) X10*3/uL Nucleated RBC % (auto) (0.0-0.2) /100WBC PT 12.2 (10.0-13.1) SEC INR 1.1 (0.9-1.1) Sodium (135-145) mmol/L Potassium (3.3-5.1) mmol/L Chloride (96-108) mmol/L Carbon Dioxide (22-29) mmol/L Anion Gap (12-20) BUN (9-16) mg/dL Creatinine (0.5-1.4) mg/dL Estim Creat Clear Calc Estimated GFR Random Glucose (60-115) mg/dL Calcium (8.4-10.2) mg/dL Total Bilirubin (0.0-1.0) mg/dL AST (5-31) U/L ALT (0-31) U/L Alkaline Phosphatase (39-117) U/L Total Creatine Kinase (26-140) U/L Troponin I High Sens (<3.5-17.0) ng/L Total Protein (6.5-8.0) g/dL Albumin (3.5-5.0) g/dL <TAMIR Mccray - Last Filed: 05/01/22 22:55> Imaging Data Wrist and Hand X-ray: Attestation: I personally reviewed and interpreted this imaging study as follows: <Lizz Monk NP - Last Filed: 05/01/22 21:49> Radiologist's impression: XR/XR hand wrist LT IMPRESSION: 1.? No acute fracture or dislocation identified. 2.? Chronic/healed fracture of the base of the right fifth metacarpal. XR/XR hand wrist RT IMPRESSION: 1.? No acute fracture or dislocation identified. 2.? Chronic/healed fracture of the base of the right fifth metacarpal. <Lizz Monk NP - Last Filed: 05/01/22 21:49> Critical Care Time Critical Care Time Critical Care Time: No <TAMIR Mccray - Last Filed: 05/01/22 22:55> Discharge Plan Discharge Clinical Impression: Fracture of radial neck, Zygomatic fracture, Fracture of right orbit, Fracture of maxillary sinus, Fall, Concussion, Traumatic ecchymosis of orbit <Lizz Monk NP - Last Filed: 05/01/22 21:49> Patient Disposition: [facility] <Lizz Monk NP - Last Filed: 05/01/22 21:49> Transfer Details: [facility]'s Emergency Department Dr. Patterson <Lizz Monk NP - Last Filed: 05/01/22 21:49> [facility] Emergency Department Dr. Patterson <TAMIR Mccray - Last Filed: 05/01/22 22:55> Prescriptions: No Action doxycycline hyclate 100 mg tablet 100 mg PO BID Qty: 14 0RF <Lizz Monk NP - Last Filed: 05/01/22 21:49>
[2022-05-01 17:32] VITALS: BP 159/72; PULSE 69; RESP 16; TEMP 35.5; O2SAT 100
[2022-05-01] MEDS: Diphth,Pertus(ACell),Tet Adult 0.5 ML SYRINGE IM (18:03)
[2022-05-01] MEDS: oxyCODONE HCl Immed Release 5 MG TABLET PO (18:04)
[2022-05-01 18:57] VITALS: BP 145/65; PULSE 74; RESP 16; TEMP 36.1; O2SAT 98
[2022-05-01] MEDS: Lidocaine HCl 1 % MPF 5 ML VIAL 20 ML SUBCUT (19:30)
[2022-05-01 21:11] LABS: MANUAL DIFF FLAG NO
[2022-05-01 21:19] LABS: Basophils Absolute Auto 0.1 X10*3/uL (0.0-0.2); Basophils Percent Auto 0.8 % (0-2); Eosinophils Percent Auto 0.3 % (0-4); Hematocrit 40.9 % (37.0-47.0); Hemoglobin 13.6 g/dl (12.0-16.0); Imm Gran Abs Auto 0.03 X10*3/uL (0.00-0.03); Imm Gran Pct Auto 0.4 % (0.0-0.4); Lymphocytes Absolute Auto 1.1 X10*3/uL (1.2-4.9); Lymphocytes Percent Auto 14.5 % (20-40); Mean Corpuscular HGB Conc 33.3 g/dl (31.0-35.0); Mean Corpuscular Hemoglobin 31.1 pg (27.0-33.0); Mean Corpuscular Volume 93.4 fL (80.0-98.0); Mean Platelet Volume 9.5 fL (9.4-12.3); Monocytes Absolute Auto 0.4 X10*3/uL (0.1-1.2); Monocytes Percent Auto 5.3 % (2-11); Neutrophils Percent Auto 78.7 % (45-73); Platelet Count 196 X10*3/uL (160-400); Red Blood Count 4.38 X10*6/uL (4.20-5.50); White Blood Count 7.7 X10*3/uL (4.8-10.8)
[2022-05-01 21:31] LABS: INTERNATIONAL NORM RATIO 1.1 (0.9-1.1); Prothrombin Time 12.2 SEC (10.0-13.1)
[2022-05-01 21:33] LABS: Alanine Aminotransferase 19 U/L (0-31); Albumin Level 4.1 g/dL (3.5-5.0); Alkaline Phosphatase 72 U/L (39-117); Anion Gap 17 (12-20); Aspartate Amino Transferase 26 U/L (5-31); Bilirubin Total 0.5 mg/dL (0.0-1.0); Blood Urea Nitrogen 23 mg/dL (9-16); Calcium 9.1 mg/dL (8.4-10.2); Carbon Dioxide 21 mmol/L (22-29); Chloride 106 mmol/L (96-108); Creatinine Clr Calc Pharmacy 41.5; Estimated Glomerular Filt Rate 43; Glucose Random 99 mg/dL (60-115); Potassium 4.1 mmol/L (3.3-5.1); Sodium 140 mmol/L (135-145)
[2022-05-01 22:00] VITALS: BP 142/62; PULSE 68; O2SAT 97
--- NOTE | 2022-05-01 22:30 | PC.NURSE ---
Pt. moved from [facility] room 2 to [facility] room 4. Pt. is also on fur blower at this time
[2022-05-01] MEDS: iohexoL 350 MG/ML 100 ML INFUS..BTL IV (22:41)
--- NOTE | 2022-05-01 23:00 | PC.NURSE ---
Wrapped pt.'s hand with non-adherent gauze and kerlix wrap. OK per Nancy Page PA
[2022-05-01] MEDS: 0.9 % Sodium Chloride 1,000 ML 999 ML IV (23:12)
--- NOTE | 2022-05-01 23:27 | PC.NURSE ---
called x2 to give report call lost and no answer.
== END 2022-05-01 23:27 | disposition short-term general hospital (02) ==
PROVIDERS: Nurse Practitioner Acute Care; Physician Assistant; Emergency Provider Student in an Organized Health Care Education/Training Program; PCP Nurse Practitioner Family
DX: S06.0X0A Concussion without loss of consciousness, initial encounter (principal); S52.131A Displaced fracture of neck of right radius, initial encounter for closed fracture; S02.40EA Zygomatic fracture, right side, initial encounter for closed fracture; S02.31XA Fracture of orbital floor, right side, initial encounter for closed fracture; S02.40CA Maxillary fracture, right side, initial encounter for closed fracture; S05.11XA Contusion of eyeball and orbital tissues, right eye, initial encounter; S01.21XA Laceration without foreign body of nose, initial encounter; S01.81XA Laceration without foreign body of other part of head, initial encounter; S60.512A Abrasion of left hand, initial encounter; W01.0XXA Fall on same level from slipping, tripping and stumbling without subsequent striking against object, initial encounter; Y93.31 Activity, mountain climbing, rock climbing and wall climbing; Y92.828 Other wilderness area as the place of occurrence of the external cause; Y99.8 Other external cause status; Z79.82 Long term (current) use of aspirin; Z79.899 Other long term (current) drug therapy; Z79.02 Long term (current) use of antithrombotics/antiplatelets
CPT/HCPCS: 12011; 36415; 70450; 70486; 71260; 72125; 73030; 73090; 73110; 73130; 74177; 80053; 82550; 84484; 85025; 85610; 90471; 90715; 93005; 99285; Q9967

== ENCOUNTER 2022-06-26 08:44 | Outpatient (REF) | payer MEDICARE, SELFPAY ==
[2022-06-26 11:49] LABS: Anion Gap 10 (12-20); Blood Urea Nitrogen 17 mg/dL (9-16); Calcium 9.4 mg/dL (8.4-10.2); Carbon Dioxide 28 mmol/L (22-29); Chloride 104 mmol/L (96-108); Estimated Glomerular Filt Rate 48; Glucose Random 86 mg/dL (60-115); Potassium 4.4 mmol/L (3.3-5.1); Sodium 138 mmol/L (135-145)
== END 2022-06-26 08:45 | disposition home or self-care (01) ==
LOC: HO.HMGCLDS 08:44
PROVIDERS: PCP Nurse Practitioner Family; Visit Provider Internal Medicine Hypertension Specialist
DX: N18.32 Chronic kidney disease, stage 3b (principal)
CPT/HCPCS: 36415; 80048

== ENCOUNTER 2023-01-28 09:51 | Outpatient (REF) | payer MEDICARE, SELFPAY ==
--- NOTE | ~2023-01-28 | US_ITS ---
EXAMINATION: US THYROID CLINICAL INFORMATION: Multinodular goiter. COMPARISON: Carotid Doppler 06/02/2019. Ultrasound soft tissue head/neck thyroid dated 05/17/2012. TECHNIQUE: Linear transducer grayscale and color Doppler examination with attention to the region of the thyroid. Right thyroid lobe difficult to visualize, limiting accuracy of measurements, due to size, heterogeneity and low-lying location. FINDINGS: SIZE: Measurements of the thyroid lobes and nodules are given in sagittal, anteroposterior and transverse dimensions respectively. Right Thyroid Lobe: 8.8 x 3.8 x 3.5 cm, volume 61.2 mL. Previously 6.8 x 4.0 x 4.9 cm, volume 69.7 mL. Parenchyma: The gland echotexture is heterogeneous. Thyroid vascularity is normal. Left Thyroid Lobe: 3.8 x 1.5 x 1.2 cm, volume 3.5 mL. Previously 3.1 x 0.7 x 1.1 cm, volume 1.2 mL. Parenchyma: The gland echotexture is homogeneous. Thyroid vascularity is normal. Isthmus: 0.89 cm in maximum AP dimension. Previously 0.30 cm. Estimated total number of nodules greater than or equal to 1 cm: 1. Land Surveyor Assistant nodules are described as follows: 1. Location: Right mid/inferior. This nodule is difficult to accurately measure due to size and low lying location. Size: 5.5 x 3.5 x 5.6 cm, volume 56.0 mL. Previously: 4.3 x 3.4 x 4.6 cm, volume 35.2 mL on carotid ultrasound of 06/12/2019 and 3.8 x 4.4 x 4.5 cm on thyroid ultrasound of 05/17/2012. Nodule characteristics: Composition: Solid/almost completely solid (2). Echogenicity: Isoechoic (1). Shape: Not taller than wide (0). Margins: Smooth (0). Echogenic Foci: Punctate echogenic foci (3). ACR TI-RADS total points: 6 ACR TI-RADS category: 4 2. Location: Left superior. Size: 0.85 x 0.43 x 0.60 cm, volume 0.12 mL. Previously: Not documented on the prior study. Nodule characteristics: Composition: Cystic(0). ACR TI-RADS total points: 0 ACR TI-RADS category: 1 3. Location: Left superior. Size: 0.37 x 0.16 x 0.21 cm, volume 0.01 mL. Previously: Not documented on the prior study. Nodule characteristics: Composition: Cystic(0). ACR TI-RADS total points: 0 ACR TI-RADS category: 1 4. Location: Left inferior. Size: 0.31 x 0.25 x 0.29 cm, volume 0.01 mL. Previously: Not documented on the prior study. Nodule characteristics: Composition: Cystic(0). ACR TI-RADS total points: 0 ACR TI-RADS category: 1 NODES: No lymphadenopathy is seen in the tissue surrounding the thyroid gland. US/US thyroid IMPRESSION: A 5.6 cm right TR4 thyroid nodule is difficult to accurately measure due to size and low lying location. This nodule measured 4.6 cm on carotid ultrasound of 06/12/2019 and 4.5 cm on thyroid ultrasound of 05/17/2012. This nodule meets criteria for biopsy. Fine-needle aspiration recommended if not already performed. ACR TI-RADS RECOMMENDATION REFERENCE: Ultrasound-guided fine-needle aspiration, followup ultrasound, no further follow up. * TR1 (0 point) and TR2 (2 points): No FNA or follow up * TR3 (3 points): FNA if more than or equal to 2.5 cm in maximum dimension, followup ultrasound in 1, 3 and 5 years if 1.5 to 2.4 cm in maximum dimension. * TR4 (4-6 points): FNA if more than or equal to 1.5 cm in maximum dimension, followup ultrasound in 1, 2, 3 and 5 years if 1 to 1.4 cm in maximum dimension. * TR5 (more than or equal to 7 points): FNA if more than or equal to 1 cm in maximum dimension, followup ultrasound every year for 5 years if 0.5 to 0.9 cm in maximum dimension. * TR3, TR4 or TR5 nodules that are below the size threshold for follow up receive no follow up.
== END 2023-01-28 09:52 | disposition home or self-care (01) ==
LOC: HO.HMGCX 09:51
PROVIDERS: PCP Nurse Practitioner Family; Visit Provider Nurse Practitioner Family
DX: E04.2 Nontoxic multinodular goiter (principal)
CPT/HCPCS: 36415; 76536; 84443

== ENCOUNTER 2023-04-11 07:48 | Outpatient (REF) | payer MEDICARE, SELFPAY ==
--- NOTE | ~2023-04-11 | MM_ITS ---
EXAMINATION: MM SCREENING DIGITAL BREAST TOMOSYNTHESIS, BILATERAL CLINICAL INFORMATION: Screening. Asymptomatic. COMPARISON: Mammography: This study is compared with prior exams dating back to 2017. TECHNIQUE: Digital breast tomosynthesis is performed in both the craniocaudal and mediolateral oblique views along with computer-aided detection (CAD). Synthesized 2D images are generated from the tomosynthesis. FINDINGS: The breasts are almost entirely fatty (ACR BI-RADS breast composition Category a). There are no significant masses, abnormal calcifications, or other abnormalities. MM/MM tomosynthesis screening BI IMPRESSION: No mammographic evidence of malignancy. ASSESSMENT: BI-RADS BI-RADS 1 - Negative RECOMMENDATION: Routine annual mammography screening. 1 year F/U This examination should not preclude the clinical evaluation of a suspicious palpable abnormality. This patient's information was entered into a reminder system with a target due date for their next mammogram.
== END 2023-04-11 07:49 | disposition home or self-care (01) ==
LOC: HO.MAMMO 07:48
PROVIDERS: PCP Nurse Practitioner Family; Visit Provider Nurse Practitioner Family
DX: Z12.31 Encounter for screening mammogram for malignant neoplasm of breast (principal)
CPT/HCPCS: 77063; 77067

== ENCOUNTER → 2023-04-11 08:00 | Outpatient (BNV) | payer MEDICARE, SELFPAY | PROVIDERS: PCP Nurse Practitioner Family; Visit Provider Radiology Diagnostic Radiology | DX: Z12.31 Encounter for screening mammogram for malignant neoplasm of breast (principal) | CPT/HCPCS: 77063; 77067 ==

== ENCOUNTER 2023-06-23 06:51 | Outpatient (REF) | payer MEDICARE, SELFPAY ==
[2023-06-23 11:56] LABS: Anion Gap 12 (12-20); Blood Urea Nitrogen 21 mg/dL (9-16); Calcium 9.1 mg/dL (8.4-10.2); Carbon Dioxide 26 mmol/L (22-29); Chloride 108 mmol/L (96-108); Estimated Glomerular Filt Rate 50; Glucose Random 88 mg/dL (60-115); Sodium 142 mmol/L (135-145)
== END 2023-06-23 06:52 | disposition home or self-care (01) ==
LOC: HO.HMGCLDS 06:51
PROVIDERS: PCP Nurse Practitioner Family; Visit Provider Internal Medicine Hypertension Specialist
DX: N18.31 Chronic kidney disease, stage 3a (principal)
CPT/HCPCS: 36415; 80048

== ENCOUNTER → 2023-06-30 11:07 | Outpatient (BNVA) | payer MEDICARE, SELFPAY | PROVIDERS: PCP Nurse Practitioner Family; Visit Provider Internal Medicine Hypertension Specialist | DX: N18.2 Chronic kidney disease, stage 2 (mild) (principal) | CPT/HCPCS: 99212 ==

== ENCOUNTER 2023-06-30 11:12 | Outpatient (AMB) | payer MEDICARE, SELFPAY ==
--- NOTE | 2023-06-30 11:05 | HO.NEPHOV_ITS ---
HPI HPI Comments History of Present Illness Details 72-year-old woman with a history of atro phic left kidney he is here for annual follow-up. Today she has no new complaints. Her fluid intake has been adequate. She had a thyroid biopsy and results are pending. PFSH Surgical History (Updated 06/30/23 @ 11:13 by Brenda Carlson MA) Hx of appendectomy H/O total hysterectomy Hx of tonsillectomy H/O tubal ligation Family History (Updated 06/30/23 @ 11:14 by Brenda Carslon MA) Father Colon cancer CHF (congestive heart failure) Kidney disease Mother CHF (congestive heart failure) Stroke Hypertension Social History (Updated 06/30/23 @ 11:12 by Brenda Carlson MA) Alcohol intake: current Alcohol intake frequency: a few times a week Patient Tobacco Use Status: Never used Tobacco Vital Signs 06/30/23 11:06 Height 5 ft 4 in Weight 185 lb 2 oz BMI 31.8 BP 132/78 Blood Pressure Location Lt brachial Position Sitting Pulse 66 Pulse Source Pulse Oximeter Pulse Oximetry (%) 95 Oxygen Delivery Method Room Air Physical Exam Vital Signs: Last Vital Signs Pulse 66 06/30/23 11:06 BP 132/78 06/30/23 11:06 Pulse Ox 95 06/30/23 11:06 Oxygen Delivery Method Room Air 06/30/23 11:06 BMI result Body Mass Index 31.8 Const General: comfortable; No acute distress Orientation/consciousness: patient oriented x3 Eyes General: appearance normal, both eyes and all related structures Visual Coker: normal visual coker by confrontation Neck Neck: Yes supple and Yes no JVD Resp Effort & Inspection: normal respiratory effort and respiratory effort not decreased Auscultation: rhonchi Cardio Palpation: no palpable S3 and no palpable S4 Heart sounds: no rubs GI Inspection: Yes normal to inspection Palpation (GI): Soft to palpation Percussion: Yes normal to percussion Auscultation: normal bowel sounds General: Yes no CVA tenderness Back/Spine/Pelvis Back: no CVA tenderness Skin General skin exam: no petechiae and no purpura Neuro General: patient oriented x3 and no focal motor deficits Extrem General: No clubbing and No edema Assessment & Plan Assessment & Plan (1) CKD (chronic kidney disease) stage 2, GFR 60-89 ml/min: Code(s): N18.2 - Chronic kidney disease, stage 2 (mild) Plan: Mild CKD in a setting of atrophic left kidney. Right kidney appears normal. Urine sediments have been bland. Goal is to slow the portion disease. Maintain intake mostly output Continue overt nephrotoxic agents including NSAIDs. No changes were made to were medication. Blood pressure is acceptable Orders: Orders Electrolytes 11 Months N18.2 - Chronic kidney disease, stage 2 (mild) Creatinine 11 Months N18.2 - Chronic kidney disease, stage 2 (mild) Creatinine Urine 11 Months N18.2 - Chronic kidney disease, stage 2 (mild) UA and rflx microscopic 11 Months N18.2 - Chronic kidney disease, stage 2 (mild) Blood Urea Nitrogen 11 Months N18.2 - Chronic kidney disease, stage 2 (mild) Calcium 11 Months N18.2 - Chronic kidney disease, stage 2 (mild) Total Protein Urine Random 11 Months N18.2 - Chronic kidney disease, stage 2 (mild) Coding Level of Care Code Est Pt Level 3 (38519) Diagnoses CKD (chronic kidney disease) stage 2, GFR 60-89 ml/min N18.2 Results Reviewed Nephrology Results: Hgb 13.6 g/dl (12.0-16.0) 05/01/22 WBC 7.7 X10*3/uL (4.8-10.8) 05/01/22 Plt Count 196 X10*3/uL (160-400) 05/01/22 Sodium 142 mmol/L (135-145) 06/23/23 Potassium 4.0 mmol/L (3.3-5.1) 06/23/23 Chloride 108 mmol/L (96-108) 06/23/23 Carbon Dioxide 26 mmol/L (22-29) 06/23/23 BUN 21 mg/dL (9-16) H 06/23/23 Creatinine 1.08 mg/dL (0.5-1.4) 06/23/23 Calcium 9.1 mg/dL (8.4-10.2) 06/23/23 Urine Protein NEG MG/DL (NEG-TRACE) 06/27/21 Urine Creatinine 163.54 mg/dL 06/27/21 Protein/Creatinin Ratio 0.08 (<0.2) 06/27/21 Renal US 06/27/21
[2023-06-30 11:06] VITALS: BP 132/78; PULSE 66; O2SAT 95; BMI 31.8
== END 2023-06-30 11:26 | disposition home or self-care (01) ==
PROVIDERS: PCP Nurse Practitioner Family; Visit Provider Internal Medicine Hypertension Specialist
DX: N18.2 Chronic kidney disease, stage 2 (mild) (principal)
CPT/HCPCS: 99213

== ENCOUNTER 2024-04-16 07:44 | Outpatient (REF) | payer MEDICARE, SELFPAY ==
--- NOTE | ~2024-04-16 | MM_ITS ---
EXAMINATION: MM SCREENING DIGITAL BREAST TOMOSYNTHESIS, BILATERAL CLINICAL INFORMATION: Screening. Asymptomatic. COMPARISON: Mammography: Comparison is made with available priors TECHNIQUE: Digital breast mammography with tomosynthesis is performed in both the craniocaudal and mediolateral oblique views along with computer-aided detection (CAD). FINDINGS: There are scattered areas of fibroglandular density (ACR BI-RADS breast composition Category b). There are no significant masses, abnormal calcifications, or other abnormalities. MM/MM tomosynthesis screening BI IMPRESSION: No mammographic evidence of malignancy. ASSESSMENT: BI-RADS BI-RADS 1 - Negative RECOMMENDATION: Routine annual mammography screening. 1 year F/U This examination should not preclude the clinical evaluation of a suspicious palpable abnormality. This patient's information was entered into a reminder system with a target due date for their next mammogram. Electronically signed by: Leelee Sal DO 04/28/2024 08:55 AM EDT
== END 2024-04-16 07:45 | disposition home or self-care (01) ==
LOC: HO.MAMMO 07:44
PROVIDERS: PCP Physician Assistant Surgical; Visit Provider Physician Assistant Surgical
DX: Z12.31 Encounter for screening mammogram for malignant neoplasm of breast (principal)
CPT/HCPCS: 77063; 77067

== ENCOUNTER → 2024-04-16 08:00 | Outpatient (BNV) | payer MEDICARE, SELFPAY | PROVIDERS: PCP Physician Assistant Surgical; Visit Provider Internal Medicine | DX: Z12.31 Encounter for screening mammogram for malignant neoplasm of breast (principal) | CPT/HCPCS: 77063; 77067 ==

== ENCOUNTER 2024-06-01 10:28 | Outpatient (REF) | payer MEDICARE, SELFPAY ==
[2024-06-01 13:44] LABS: Anion Gap 11 (12-20); Blood Urea Nitrogen 25 mg/dL (9-16); Calcium 9.5 mg/dL (8.4-10.2); Carbon Dioxide 26 mmol/L (22-29); Chloride 107 mmol/L (96-108); Estimated Glomerular Filt Rate 39; Potassium 4.9 mmol/L (3.3-5.1); Sodium 139 mmol/L (135-145)
== END 2024-06-01 10:29 | disposition home or self-care (01) ==
LOC: HO.HMGCLDS 10:28
PROVIDERS: PCP Physician Assistant Surgical; Visit Provider Internal Medicine Hypertension Specialist
DX: Z13.89 Encounter for screening for other disorder (principal)
CPT/HCPCS: 36415; 80051; 82310; 82565; 84520

== ENCOUNTER 2024-06-01 13:13 | Outpatient (REF) | payer MEDICARE, SELFPAY ==
[2024-06-02 10:36] LABS: Appearance Urine Turbid; Color Urine Dark Yellow; Glucose Urine UA Negative (Negative); Leukocyte Esterase Urine Large (3+) (Negative); Nitrite Urine Negative (Negative); UMIC TRIGGER UA YES; Urine Blood Moderate (2+) (Negative); Urine Ketones Trace mg/dL (Negative); Urine Protein 30 (1+) mg/dL (Neg-Trace)
[2024-06-02 11:03] LABS: Bacteria Urine 1+ (None Seen); Hyaline Casts Urine 0-2 /LPF (0-2); Squamous Epithelial Cell Urine 0-2 /HPF (0-2); WBC Urine >50 /HPF (0-5)
[2024-06-02 11:25] LABS: Creatinine Urine 194.35 mg/dL; Total Protein Urine Random 35 mg/dL (<12)
== END 2024-06-01 13:14 | disposition home or self-care (01) ==
LOC: HO.HMGCLNP 13:13
PROVIDERS: PCP Physician Assistant Surgical; Visit Provider Internal Medicine Hypertension Specialist
DX: N18.2 Chronic kidney disease, stage 2 (mild) (principal)
CPT/HCPCS: 36415; 80051; 81001; 82310; 82565; 82570; 84156; 84520

== ENCOUNTER 2024-06-07 10:46 | Outpatient (AMB) | payer MEDICARE, SELFPAY ==
[2024-06-07 10:53] VITALS: BP 122/78; BMI 31.1
--- NOTE | 2024-06-07 10:53 | HO.NEPHOV ---
Vital Signs 06/07/24 10:53 Height 5 ft 4 in Weight 181 lb BMI 31.1 BP 122/78 Blood Pressure Location Rt brachial Position Sitting Intake Visit Reasons: Nov follow up/ LVM [employer] Required: No Accompanied by: Self / Same As Patient Allergies NSAIDS (Non-Steroidal Anti-Inflamma [NSAIDS (NON-STEROIDAL ANTI-INFLAMMA] Allergy (Unknown, Verified 06/30/23 11:10) CHRONIC KIDNEY DISEASE, UNABLE TO TAKE morphine [MORPHINE] Adverse Reaction (Mild, Verified 06/30/23 11:10) VOMITING From DILAUDID Adverse Reaction (Mild, Uncoded 06/30/23 11:10) VOMITING Medication List - Last Reconciled 06/07/24 by Titi Ayala MD aspirin (Adult Aspirin Regimen) 81 mg PO DAILY biotin mcg PO DAILY bupropion HCl XL 300 mg PO DAILY calcium carbonate (Calcium 500) 500 mg PO DAILY cholecalciferol (vitamin D3) 25 mcg PO DAILY coenzyme Q10 (Co Q-10) 100 mg PO DAILY duloxetine 30 mg PO BID gabapentin 100 - 300 mg PO BEDTIME PRN mecobalamin (vitamin B12) mcg PO DAILY rutin 500 mg PO DAILY simvastatin 20 mg PO QPM HPI Comments Details: 72-year-old woman with a history of atrophic left kidney he is here for annual follow-up. Today she has no new complaints. Her fluid intake has been adequate. She had a thyroid biopsy -reportedly negative She has been taking care for . And admits to inadequate p.o. fluid intake PFSH Surgical History Hx of appendectomy H/O total hysterectomy Hx of tonsillectomy H/O tubal ligation Family History Father Colon cancer CHF (congestive heart failure) Kidney disease Mother CHF (congestive heart failure) Stroke Hypertension Social History Alcohol intake: current Alcohol intake frequency: a few times a week Patient Tobacco Use Status: Never used Tobacco Physical Exam Vital Signs: Last Vital Signs BP 122/78 06/07/24 10:53 BMI result Body Mass Index 31.1 Const General: comfortable; No acute distress Orientation/consciousness: patient oriented x3 Eyes General: appearance normal, both eyes and all related structures Visual Sosa: normal visual sosa by confrontation Neck Neck: Yes supple and Yes no JVD Resp Effort & Inspection: normal respiratory effort and respiratory effort not decreased Auscultation: rhonchi Cardio Palpation: no palpable S3 and no palpable S4 Heart sounds: no rubs GI Inspection: Yes normal to inspection Palpation (GI): Soft to palpation Percussion: Yes normal to percussion Auscultation: normal bowel sounds General: Yes no CVA tenderness Back/Spine/Pelvis Back: no CVA tenderness Skin General skin exam: no petechiae and no purpura Neuro General: patient oriented x3 and no focal motor deficits Extrem General: No clubbing and No edema Results Reviewed Nephrology Results: Hgb 13.6 g/dl (12.0-16.0) 05/01/22 WBC 7.7 X10*3/uL (4.8-10.8) 05/01/22 Plt Count 196 X10*3/uL (160-400) 05/01/22 Sodium 139 mmol/L (135-145) 06/01/24 Potassium 4.9 mmol/L (3.3-5.1) 06/01/24 Chloride 107 mmol/L (96-108) 06/01/24 Carbon Dioxide 26 mmol/L (22-29) 06/01/24 BUN 25 mg/dL (9-16) H 06/01/24 Creatinine 1.33 mg/dL (0.5-1.4) 06/01/24 Calcium 9.5 mg/dL (8.4-10.2) 06/01/24 Urine Protein 30 (1+) mg/dL (Neg-Trace) H 06/01/24 Urine Creatinine 194.35 mg/dL 06/01/24 Assessment & Plan Assessment & Plan (1) CKD (chronic kidney disease) stage 2, GFR 60-89 ml/min: Code(s): N18.2 - Chronic kidney disease, stage 2 (mild) Category: Medical Plan: Mild CKD in a setting of atrophic left kidney. Right kidney appears normal. Urine sediments have been bland. Goal is to slow the porgression of disease. Mild bump in cr due to hypoperfusion. Maintain intake more than output Continue to avoid nephrotoxic agents including NSAIDs. No changes were made to were medication. Blood pressure is acceptable Orders: Orders Creatinine 6 Months N18.2 - Chronic kidney disease, stage 2 (mild) Complete Blood Count no Diff 6 Months N18.2 - Chronic kidney disease, stage 2 (mild) Total Protein Urine Random 6 Months N18.2 - Chronic kidney disease, stage 2 (mild) Creatinine Urine 6 Months N18.2 - Chronic kidney disease, stage 2 (mild) Blood Urea Nitrogen 6 Months N18.2 - Chronic kidney disease, stage 2 (mild), N18.4 - Chronic kidney disease, stage 4 (severe) UA and rflx microscopic 6 Months N18.2 - Chronic kidney disease, stage 2 (mild) Coding Level of Care Code Est Pt Level 4 (25716) Diagnoses CKD (chronic kidney disease) stage 2, GFR 60-89 ml/min N18.2
== END 2024-06-07 11:24 | disposition home or self-care (01) ==
PROVIDERS: PCP Nurse Practitioner Family; Visit Provider Internal Medicine Hypertension Specialist
DX: N18.2 Chronic kidney disease, stage 2 (mild) (principal); N26.1 Atrophy of kidney (terminal)
CPT/HCPCS: 99214

== ENCOUNTER → 2024-06-07 10:46 | Outpatient (BNVA) | payer MEDICARE, SELFPAY | PROVIDERS: PCP Nurse Practitioner Family; Visit Provider Internal Medicine Hypertension Specialist | DX: N18.2 Chronic kidney disease, stage 2 (mild) (principal) | CPT/HCPCS: 99212 ==

== ENCOUNTER 2025-02-17 06:43 | Day surgery (SDC) | payer MEDICARE, SELFPAY ==
--- OUTSIDE RECORDS SUMMARY | 2025-01-18 18:31 | XMS_ITS | Patient Health Record ---
Author Organization [facility] Address [address] [place] [address] Care Team Providers Care Automatic Pad Making Machine Operator Name Role Phone Wale Ariza M.D. Primary Care Provider Julio [place] Jr Unavailable Allergies Allergen (clinical drug ingredient) Drug/Non Drug Allergy documented on EMR Reaction Allergy Type Onset Date Status ibuprofen Ibuprofen Unknown Drug Allergy Active morphine Morphine Sulfate Unknown Drug Allergy Active Reason For Referral No Information Medications Medication SIG (Take, Route, Frequency, Duration) Notes Start Date End Date Status Aspir-81 81 MG 1 tablet Orally Once a day Active buPROPion HCl ER (XL) 300 MG 1 tablet in the morning Orally Once a day for 90 days Active Calcium Active [place] 3 Not-Taking Biotin 5000 Active Rutin Not-Taking Omeprazole 20 MG 2 capsules Orally prn Active Vitamin D3 Active Simvastatin 20 MG 1 tablet in the even ing Orally Once a day Active Tart Pollard Advanced Not-Taking Gabapentin 400 MG 1capsule Orally qhs Active Vitamin B Complex Ac tive Magnesium Active DULoxetine HCl 30 MG 1 capsule Orally On ce a day Active CoQ10 Active Immunizations Vaccine Route Administration Date Status Comme nts Influenza Unknown 03/27/2021 Administered Influenza Unknown 04/12/2024 Administered Problems Problem Type SNOMED Code ICD Code Onset Dates Problem Status W/U Status Risk Notes Problem 967993557 Colon cancer screening (Z12.11) Active confirmed Problem 682740024 Gastroesophageal reflux disease without esophagitis (K21.9) Active confirmed Problem 178952702 Gas (R14.3) Active confirmed Vital Signs Temperature 96.6 degrees Fahrenheit 01/18/2025 Blood pressure diastolic 01 mm Hg 01/18/2025 Height 64.25 in 01/18/2025 Blood pressure systolic 001 mm Hg 01/18/2025 Weight 177.4 lbs 01/18/2025 BMI 30.21 kg/m2 01/18/2025 Encounters Encounter Location Date Provider Diagnosis [facility] [address] [place] [address] 01/18/2025 Julio [place] Jr Colon cancer screening Z12.11 Assessments Encounter Date Diagnosis (ICD Code) Assessment Notes Treatment Notes Treatment Clinical Notes Section Notes 01/18/2025 Colon cancer screening (ICD-10 - Z12.11) Plan Of Treatment Future Test Test Name Order Date COLONOSCOPY 02/07/2016 COLONOSCOPY 04/24/2022 COLONOSCOPY 01/18/2025 Next Appt Details Provider Name:Julio brown Jr, 02/17/2025 09:00:00 AM, [address] [place] [address] , [place], [place], [id number], Insurance Providers Payer Name Payer Address Payer Phone Subscriber Number Group Number Insured Name Patient Relationship to Insured Coverage Start Date Coverage End Date [facility] [address] [place] [phone] [id number] JONATHAN MORAN Self - patient is the insured 4 Medical (General) History Medical History History ICD Code Gastroesophageal reflux disease, EGD , hyperplastic polyp, no BE her HP Family history of colon canc er, last colonoscopy 06/11, five-year followup, previous history of tubular adenomas in 1999 and depression chronic kidney disease stage IIIB stroke 2012 Elevated cholesterol Surgical History Surgery Date(Month/Year) broke left wrist vein ligation tubal ligation hysterectomy with BSO for fibroid diseas e tonsillectomy back surgery
[2025-02-15 12:31] VITALS: BMI 30.2
[2025-02-17 07:09] VITALS: BMI 29.1
[2025-02-17 07:16] VITALS: BP 141/67; PULSE 72; RESP 15; TEMP 36.2; O2SAT 98
[2025-02-17] MEDS: Lactated Ringers 1,000 ML 50 ML IVCONT (07:29)
--- NOTE | 2025-02-17 08:10 | HO.ANESPROP2 ---
[facility] Active Problems Active Problems: All Active Problems (Updated 02/17/25 @ 07:07 by Yanely Hernandez, RN) CKD (chronic kidney disease) stage 2, GFR 60-89 ml/min (Acute) Cellulitis (Acute) Past Medical History Medical History Ataxia Mack thyroiditis CVA (cerebral vascular accident) Elevated cholesterol Chronic renal insufficiency Depression GERD (gastroesophageal reflux disease) Cognitive capacity: normal Functional capacity: independent ambulation Family History Family History Father Colon cancer CHF (congestive heart failure) Kidney disease Mother CHF (congestive heart failure) Stroke Hypertension Family history of problems with anesthesia: No Surgical History Surgical History History of surgery on wrist History of back surgery History of esophagogastroduodenoscopy (EGD) H/O colonoscopy Hx of appendectomy H/O total hysterectomy Hx of tonsillectomy H/O tubal ligation History of Problems with Anesthesia: No Social History Social History (Updated 02/15/25 @ 12:35 by Mary Simms RN) Household Members: Spouse Alcohol intake: current Alcohol intake frequency: a few times a week Patient Tobacco Use Status: Former Tobacco user Tobacco use type: Cigarette Meds Allergies Allergy/AdvReac Type Severity Reaction Status Date / Time NSAIDS (Non-Steroidal Allergy Unknown CHRONIC Verified 02/17/25 07:08 Anti-Inflamma (NSAIDS KIDNEY (NON-STEROIDAL ANTI-INFLAMMA) DISEASE, UNABLE TO TAKE hydromorphone (From Dilaudid) AdvReac Mild Vomiting Verified 02/17/25 07:08 morphine (MORPHINE) AdvReac Mild VOMITING Verified 02/17/25 07:08 Active Medications: Current Medications Lactated Ringer's (Lr) 1,000 mls @ 50 mls/hr IVCONT .Q20H OLY Last Admin: 02/17/25 07:29 Dose: 50 mls/hr Home Medications ?Medication ?Instructions ?Recorded ?Confirmed ?Last Taken ?Type aspirin 81 mg tablet,delayed 81 mg PO DAILY 03/08/21 02/17/25 Unknown History release (Adult Aspirin Regimen) bupropion HCl 300 mg 24 hr tablet, 300 mg PO DAILY 03/08/21 02/17/25 Unknown History extended release calcium carbonate (Calcium 500) 500 mg PO DAILY 03/08/21 02/17/25 Unknown History cholecalciferol (vitamin D3) 25 25 mcg PO DAILY 03/08/21 02/17/25 Unknown History mcg (1,000 unit) capsule simvastatin 20 mg tablet 20 mg PO QPM 03/08/21 02/17/25 Unknown History biotin 5,000 mcg chewable tablet 5,000 mcg PO DAILY 06/07/24 02/17/25 Unknown History coenzyme Q10 100 mg capsule (Co 100 mg PO DAILY 06/07/24 02/17/25 Unknown History Q-10) duloxetine 30 mg capsule,delayed 30 mg PO BID 06/07/24 02/17/25 Unknown History release gabapentin 100 mg capsule 100 - 300 mg PO BEDTIME PRN Pain 06/07/24 02/17/25 Unknown History mecobalamin (vitamin B12) 500 mcg 500 mcg PO DAILY 06/07/24 02/17/25 Unknown History chewable tablet rutin 500 mg tablet 500 mg PO DAILY 06/07/24 02/17/25 Unknown History magnesium tab PO 02/17/25 02/17/25 Unknown History Exam Exam Date and Time: 02/17/25 Height,Weight and Vital Signs: Height 5 ft 4.25 in Weight 77.6 kg Last Vital Signs Temp 97.1 F 02/17/25 07:16 Pulse 72 02/17/25 07:16 Resp 15 02/17/25 07:16 BP 141/67 H 02/17/25 07:16 Pulse Ox 98 02/17/25 07:16 O2 Del Method Room Air 02/17/25 07:16 Airway Mallampati Class: II TM Dist: >3cm Neck ROM: Full Loose/Missing/Broken Teeth: Yes (some missing teeth) Heart: rrr Lungs: cta Other: neuro ni ormal Assessment and Plan Assessment Anesthesia Assessment: Anesthesia Plan Discussed Final Anesthetic Review Family History of Problems with Anesthesia: No History of Problems with Anesthesia: No NPO: Yes ASA Class: II Final Preanesthetic Review: No Changes in Pt Med Stat, Meds/Allgs Chart Reviewed, Consent Obtained/Reviewed and Anes Risks/Benef Reviewed Patient Risk: Low Procedure Risk: Low Anesthetic Plan Anesthetic Plan: MAC: Disposition: Standard PACU
--- NOTE | 2025-02-17 08:13 | MHC.SHP ---
Pre-Procedural Eval Section A - 24 Hr Update-Section A only Date of Service: 02/17/25 The patient is an INPATIENT: No Changes since office visit: No Cold of Flu in the past 2 weeks, No New Medical Problems, No Changes in Medication and No Patient answered all questions The patient has been examined within 24 hours of the surgical procedure. The History & Physical has been completed within 30 days and I have reviewed it.: Yes Section B - Complete if H&P > 30 days Chief Complaint: screening Allergies: Allergies Allergy/AdvReac Type Severity Reaction Status Date / Time NSAIDS (Non-Steroidal Allergy Unknown CHRONIC Verified 02/17/25 07:08 Anti-Inflamma (NSAIDS KIDNEY (NON-STEROIDAL ANTI-INFLAMMA) DISEASE, UNABLE TO TAKE hydromorphone (From Dilaudid) AdvReac Mild Vomiting Verified 02/17/25 07:08 morphine (MORPHINE) AdvReac Mild VOMITING Verified 02/17/25 07:08 Plan I have reviewed the history and physical and performed a pertinent physical examination on my patient. No changes have occurred unless specified. Time Spent With Patient Time: Total time managing care of this patient today ____ minutes.
[2025-02-17 09:08] VITALS: BP 132/65; PULSE 68; RESP 16; TEMP 36.3; O2SAT 100
[2025-02-17 09:29] VITALS: BP 139/72; PULSE 70; RESP 18; TEMP 36.1; O2SAT 99
--- NOTE | 2025-02-17 10:04 | OP_ITS ---
DATE OF SERVICE: 02/17/2025 SURGEON: Julio Kate MD INDICATIONS: Colon cancer screening and family history of colon cancer. PREOPERATIVE DIAGNOSIS: POSTOPERATIVE DIAGNOSIS: PROCEDURE PERFORMED: Colonoscopy to the cecum. ESTIMATED BLOOD LOSS: COMPLICATIONS: ANESTHESIA: Monitored anesthesia care. ASSISTANTS: SPECIMENS: DESCRIPTION OF PROCEDURE: A history and physical was performed. The risks and benefits of the procedure were explained to the patient, and informed consent was obtained. The patient was placed in the left lateral decubitus position. The Olympus video colonoscope was introduced in the rectum and advanced to the cecum after a digital rectal exam was performed. The cecum was identified by transillumination, palpation, and identification of ileocecal valve. Examination was performed. The scope was removed. She tolerated the procedure well and was returned to the recovery area in stable condition. FINDINGS: The terminal ileum was not examined. The visualized colonic mucosa was normal. The quality of the prep was fair with some retained stool that was liquid and clogged the scope, limiting the sensitivity examination for detection of small polyps. This was washed and suctioned as best possible. No polyps were identified. There was moderate diverticulosis throughout the sigmoid and scattered throughout the colon. Retroflexed examination showed small internal hemorrhoids. IMPRESSION: Normal colonoscopy. RECOMMENDATION: 1. Follow up as needed. 2. Repeat colonoscopy is optional based on age, 10 years is recommended for average-risk individuals and 5 years for a family history of colon cancer. MD SAROJ Blandon/MODL / [phone]
== END 2025-02-17 10:01 | disposition home or self-care (01) ==
PROVIDERS: PCP Physician Assistant Surgical; Visit Provider Internal Medicine Gastroenterology
PROC: 0DJD8ZZ Inspection of Lower Intestinal Tract, Via Natural or Artificial Opening Endoscopic (ICD-10-PCS; CPT 45378; principal; 2025-02-17 08:10)
DX: Z12.11 Encounter for screening for malignant neoplasm of colon (principal); Z80.0 Family history of malignant neoplasm of digestive organs; K57.30 Diverticulosis of large intestine without perforation or abscess without bleeding; K64.8 Other hemorrhoids; K21.9 Gastro-esophageal reflux disease without esophagitis; N18.30 Chronic kidney disease, stage 3 unspecified; E78.00 Pure hypercholesterolemia, unspecified; Z86.73 Personal history of transient ischemic attack (TIA), and cerebral infarction without residual deficits; Z79.899 Other long term (current) drug therapy; Z79.82 Long term (current) use of aspirin; Z88.5 Allergy status to narcotic agent; Z88.6 Allergy status to analgesic agent; Z98.890 Other specified postprocedural states; Z87.891 Personal history of nicotine dependence
CPT/HCPCS: G0105; J2003; J2704; J3010

== ENCOUNTER 2025-02-28 12:18 | Outpatient (REF) | payer MEDICARE, SELFPAY ==
--- OUTSIDE RECORDS SUMMARY | 2025-02-28 12:58 | XMS_ITS | Patient Health Record ---
Author Organization [facility] Address [address] [place] [address] Care Team Providers Care Yard Clerk Name Role Phone Wale Ariza M.D. Primary [...] day for 90 days Active Calcium Active [place] 3 Not-Taking Biotin 5000 Active Rutin Not-Taking [...] Problem Status W/U Status Risk Notes Problem 414685812 Colon cancer screening (Z12.11) Active confirmed Problem 025382872 Gas (R14.3) Active confirmed Problem Gastroesophageal reflux disease (148341338) GERD (gastroesopha geal reflux disease) (K21.9) Active confirmed Vital Signs Temperature 96.6 degrees Fahrenheit 01/18/2025 Blood pressure diastolic 01 mm Hg 01/18/2025 Height 64.25 in 01/18/2025 Blood pressure systolic 001 mm Hg 01/18/2025 Weight 177.4 lbs 01/18/2025 BMI 30.21 kg/m2 01/18/2025 Encounters Encounter Location Date Provider Diagnosis [facility] Outpatient [address] [place], [place] [phone] 02/17/2025 Julio [place] Jr [facility] [address] [place] [address] 01/18/2025 Julio [place] Jr Colon cancer screening Z12.11 and GERD (gastroesophageal reflux disease) K21.9 Assessments Encounter Date Diagnosis (ICD Code) Assessment Notes Treatment Notes Treatment Clinical Notes Section Notes 01/18/2025 Colon cancer screening (ICD-10 - Z12.11) We discussed gastroesophageal reflux disease today. We discussed diet, lifestyle modifications, and weight management regarding the treatment of reflux. She is currently doing well and can continue to use omeprazole as she is doing. We discussed she could be more liberal with this if needed. She is due for follow-up colonoscopy and this will be arranged. We discussed risks and benefits of the procedure today. She understands these and agrees to proceed. This will be scheduled at her convenience. 01/18/2025 GERD (gastroesopha geal reflux disease) (ICD-10 - K21.9) We discussed gastroesophageal reflux disease today. We discussed diet, lifestyle modifications, and weight management regarding the treatment of reflux. She is currently doing well and can continue to use omeprazole as she is doing. We discussed she could be more liberal with this if needed. She is due for follow-up colonoscopy and this will be arranged. We discussed risks and benefits of the procedure today. She understands these and agrees to proceed. This will be scheduled at her convenience. Plan Of Treatment Future Test Test Name Order Date COLONOSCOPY 02/07/2016 COLONOSCOPY 04/24/2022 COLONOSCOPY 01/18/2025 Insurance Providers Payer Name Payer Address Payer Phone Subscriber Number Group Number Insured Name Patient Relationship to Insured Coverage Start Date Coverage End Date [facility] [address] [place] [phone] [id number] JONATHAN MORAN Self - patient is the insured 4 Medical (General) History Medical History History ICD Code Gastroesophageal reflux disease, EGD , hyperplastic polyp, no BE her HP Family history of colon canc er, last colonoscopy 06/11, five-year followup, previous history of tubular adenomas depression chronic kidney disease stage IIIB CVA, 2011 Elevated cholesterol Surgical History Surgery Date(Month/Year) broke left wrist vein ligation tubal ligation hysterectomy with BSO for fibroid diseas e tonsillectomy back surgery
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
[2025-02-28 13:51] LABS: Hematocrit 42.6 % (37.0-47.0); Hemoglobin 13.9 g/dl (12.0-16.0); Mean Corpuscular HGB Conc 32.6 g/dl (31.0-35.0); Mean Corpuscular Hemoglobin 30.7 pg (27.0-33.0); Mean Corpuscular Volume 94.0 fL (80.0-98.0); NRBC Abs Auto 0.000 X10*3/uL (0.0-0.012); NRBC Pct Auto 0.0 /100WBC (0.0-0.2); Platelet Count 241 X10*3/uL (160-400); Red Blood Count 4.53 X10*6/uL (4.20-5.50); White Blood Count 4.6 X10*3/uL (4.8-10.8)
[2025-02-28 14:35] LABS: Blood Urea Nitrogen 22 mg/dL (9-16); Estimated Glomerular Filt Rate 43
[2025-02-28 16:11] LABS: Appearance Urine Clear; Glucose Urine UA Negative (Negative); PH 6.5 (5.0-9.0); Specific Gravity - Urine 1.015 (1.005-1.025); UMIC TRIGGER UA YES
[2025-02-28 16:56] LABS: Total Protein Urine Random 9 mg/dL (<12)
== END 2025-02-28 12:19 | disposition home or self-care (01) ==
LOC: HO.HMGCLDS 12:18
PROVIDERS: PCP Physician Assistant Surgical; Visit Provider Internal Medicine Hypertension Specialist
DX: N18.4 Chronic kidney disease, stage 4 (severe) (principal)
CPT/HCPCS: 36415; 81001; 81003; 82565; 82570; 84156; 84520; 85027

== ENCOUNTER 2025-03-07 08:24 | Outpatient (REF) | payer MEDICARE, SELFPAY ==
--- NOTE | ~2025-03-07 | MM_ITS ---
EXAMINATION: DXA BONE DENSITY AXIAL HISTORY: OSTEOPENIA TECHNIQUE: Kids360 Dual energy absorptiometry (DEXA) of the lumbar spine, total left hip, and femoral neck was performed. COMPARISON: Comparison is made with the prior examination dated 01/18/2021. FINDINGS: The bone mineral density of the lumbar spine is 1.061 g/cm2, corresponding to a T-score of -1.0, and a Z-score of 0.3. This is indicative of normal bone mineral density. This represents a BMD change of 1.0% compared to the prior exam. This is not statistically significant. The bone mineral density of the left total hip is 0.736 g/cm2, corresponding to a T-score of -2.2, and a Z-score of -0.7. This is indicative of osteopenia. This represents a BMD change of -7.2% compared to the prior exam. This is statistically significant. The bone mineral density of the left femoral neck is 0.735 g/cm2, corresponding to a T-score of -2.2, and a Z-score of -0.5. This is indicative of osteopenia. This represents a BMD change of 3.4% compared to the prior exam. FRACTURE RISK: The FRAX index suggests a ten year probability of major osteoporotic fracture of 36.5%, and of hip fracture 22.3%. MM/XR DEXA axial skeleton IMPRESSION: Based on bone mineral density, and according to World Health Organization (WHO) criteria, the diagnosis is consistent with osteopenia. Statistically, 68% of repeat scans fall within 1 SD (+/- 0.010 g/cm2 for AP spine L1-L4) and 1 SD (+/- 0.012 g/cm2 for femur total) FRAX is a trademark of the [employer]'s [place] for Metabolic Bone Disease, a World Health Organization (WHO) Collaborating Center. Electronically signed by: Aj Villarreal MD 03/07/2025 09:34 AM EDT
--- OUTSIDE RECORDS SUMMARY | 2025-03-07 08:39 | XMS_ITS | Patient Health Record ---
Author Organization [facility] Address [address] [place] [address] Care Team Providers Care Aviation Electrical Technician Name Role Phone Wale Ariza M.D. Primary [...] day for 90 days Active Calcium Active [place] 3 Not-Taking Biotin 5000 Active Rutin Not-Taking [...] Problem Status W/U Status Risk Notes Problem [id number] Colon cancer screening (Z12.11) Active confirmed Problem 694597342 Gas (R14.3) Active confirmed Problem Gastroesophageal reflux disease (582793877) GERD (gastroesopha geal reflux disease) (K21.9) Active confirmed Vital Signs Temperature 96.6 degrees Fahrenheit 01/18/2025 Blood pressure diastolic 01 mm Hg 01/18/2025 Height 64.25 in 01/18/2025 Blood pressure systolic 001 mm Hg 01/18/2025 Weight 177.4 lbs 01/18/2025 BMI 30.21 kg/m2 01/18/2025 Encounters Encounter Location Date Provider Diagnosis [facility] [place] [facility] [address] [place], [place] [id number] 02/17/2025 Julio Kate Jr [facility] [address] [place] [address] 01/18/2025 Julio Kate Jr Colon cancer screening [...] Insured Coverage Start Date Coverage End Date [facility] [address] [place] [address] [id number] 01 JONATHAN MORAN Self - patient is [...]
== END 2025-03-07 08:25 | disposition home or self-care (01) ==
LOC: HO.MAMMO 08:24
PROVIDERS: PCP Physician Assistant Surgical; Visit Provider Physician Assistant Surgical
DX: M85.80 Other specified disorders of bone density and structure, unspecified site (principal)
CPT/HCPCS: 77080

== ENCOUNTER → 2025-03-07 08:45 | Outpatient (BNV) | payer MEDICARE, SELFPAY | PROVIDERS: PCP Physician Assistant Surgical; Visit Provider Radiology Diagnostic Radiology | DX: E28.39 Other primary ovarian failure (principal) | CPT/HCPCS: 77080 ==

== ENCOUNTER 2025-04-22 08:02 | Outpatient (REF) | payer MEDICARE, SELFPAY ==
--- OUTSIDE RECORDS SUMMARY | 2025-02-17 04:10 | XMS_ITS ---
Author Organization [facility] Address [address] [place] [address] Care Team Providers Care Lead Python Developer Name Role Phone Wale Ariza M.D. Primary Care Provider Julio [place] Jr REASON FOR VISIT screening Encounters Encounter Location Date Provider Diagnosis [facility] Outpatient [address] [place] [phone] 02/17/2025 Julio Kate Jr Plan Of Treatment No Information Progress Notes * JONATHAN MORANDOB:08/1950 (74 yo F)Acc No.[id number]:02/17/2025 COLON WITH MAC Patient: Feli LARA JONATHAN Tang Provider: Jovita Kate MD :1950 A ge:74 Y S ex:Female Date:02/17/2025 Address:[address] [place], [place] [id number] Pcp:Wale Ariza M.D. Subjective: * Chief Complaints: [...] MD Date: 0 02/17/2025 Generated for Printi ng/Faxing/eTransmitting on: 0 04/22/2025 08:04 AM EDT
--- OUTSIDE RECORDS SUMMARY | 2025-04-22 08:04 | XMS_ITS | Patient Health Record ---
Author Organization [facility] Address [address] [place] [address] Care Team Providers Care Energy And Conservation Technician Name Role Phone Wale Ariza M.D. Primary Care Provider Julio Madison Jr Unavailable [phone] Allergies Allergen (clinical drug ingredient) Drug/Non Drug [...] day for 90 days Active Calcium Active [place] 3 Not-Taking Biotin 5000 Active Rutin Not-Taking [...] Problem Status W/U Status Risk Notes Problem [id number] Colon cancer screening (Z12.11) Active confirmed Problem 192796814 Gas (R14.3) Active confirmed Problem Gastroesophageal reflux disease (661885599) GERD (gastroesopha geal reflux disease) (K21.9) Active confirmed Vital Signs Temperature 96.6 degrees Fahrenheit 01/18/2025 Blood pressure diastolic 01 mm Hg 01/18/2025 Height 64.25 in 01/18/2025 Blood pressure systolic 001 mm Hg 01/18/2025 Weight 177.4 lbs 01/18/2025 BMI 30.21 kg/m2 01/18/2025 Encounters Encounter Location Date Provider Diagnosis [facility] [place] [facility] [address] [place], [place] [phone] 02/17/2025 Julio Kate Jr [facility] [address] [place] [address] 01/18/2025 Julio Kate Jr Colon cancer screening [...] Insured Coverage Start Date Coverage End Date [facility] [address] [place] [address] [id number] 01 JONATHAN MORAN Self - patient is [...]
--- OUTSIDE RECORDS SUMMARY | 2025-04-22 08:04 | XMS_ITS | Encounter Summary ---
Author Organization [facility] Address [address] [place] [address] Phone Care Team Providers Care Clip And Hanger Attacher Name Role Phone Titi Ayala MD Unavailable [phone] Wale Ariza PA-C Primary Care Provider [phone] Encounter Details Date Type Department Care Team (Late st Contact Info) Description 12/13/2024 Telephone [employer] [facility] [address] [place], [place] [phone] Wale Ariza PA-C [address] [place] [address] [email or web address] Social History Tobacco Use Types Packs/Day Years [...] Care Team (Late st Contact Info) Description 07/10/2025 9:40 AM EST Office Visit [facility] Internal Medicine [address] [place] [address] Wale Ariza PA-C [address] [place] [address] documented as of this encounter Visit Diagnoses Not on filedocumented in this encounter Additional Health Concerns Assessment Noted Time PHQ-9 Depression Total Score: 9 12/14/19 25 9:06 PM EDT PHQ-2 Depression Total Score: 3 12/14/19 25 9:06 PM EDT documented as of this encounter Care Teams Clip And Hanger Attacher Relationship Specialty Start Date End Date Wale Ariza PA-C [address] [place] [address] PCP - General Physician Travel Coordinator 12/28/23 Titi Ayala MD [address] [place] [id number] Nephrology 12/20/20 documented as of this encounter Additional Source Comments The information contained in this document represents components of the legal health record. It is not the complete legal health record.[facility]
--- OUTSIDE RECORDS SUMMARY | 2025-04-22 08:05 | XMS_ITS | Clinical Summary ---
Author Organization [facility] Address [address] [place] [id number] Phone Care Team Providers Care Bicycle Subassembler Name Role Phone Titi Ayala MD Unavailable [phone] Wale Ariza PA-C Primary Care Provider [phone] Allergies Active Allergy Reactions Criticality Noted Date Comments Ibuprofen Other (See Comments) 12/31/2017 because of kidneys Morphine Nausea and/or Vomiting 12/31/2017 Medications aspirin 81 MG EC tablet 1 tab(s) once daily Active calcium carbonate (CALCIUM 500 ORAL) Take 500 mg by mouth daily. Active cholecalciferol (VITAMIN D3) 2,000 unit capsule Take 2,000 Units by mouth daily. Active biotin 10 mg Tab Take 1 tablet by mouth daily with breakfast. Active coenzyme Q10 (COQ-10) 100 mg capsule Take 1 capsule by mouth daily. Active cyanocobalamin, vitamin B-12, (B-12 DOTS) 500 MCG tablet Take 1 tablet by mouth daily. Active omeprazole (PRILOSEC) 20 MG capsule Take 20 mg by mouth daily as needed. Active RUTIN ORAL Take 500 mg by mouth daily. 4 Active methylsulfonylm ethane (MSM) 1,000 mg Cap Take 1,000 mg by mouth daily. 4 Active MAGNESIUM ORAL Take 250 mg by mouth daily. occasionally Active DULoxetine (CYMBALTA) 30 MG capsuleIndicati ons:Anxiety TAKE 1 CAPSULE BY MOUTH TWICE A DAY 60 capsule 11 5 Active simvastatin (ZOCOR) 20 MG tabletIndicatio ns:Hyperlipidem ia Take 1 tablet (20 mg total) by mouth every evening. 90 tablet 3 5 Active buPROPion (WELLBUTRIN XL) 300 MG ER 24 hr tablet Take 1 tablet (300 mg total) by mouth daily. 90 tablet 3 5 Active Active Problems Problem Noted Date Diagnosed Date Memory change 10/13/2024 Assessment & Plan (10/13/2024 10:52 AM EDT): Patient mentions that over the course of the last year she has noticed that her short-term memory has been decreasing. She states that she is able to recall things that happen years ago but her short-term memory has been impaired over the last year. Of note she does carry history of stroke back 13 years ago however no residual effects from this. -[employer] referral for neuropsych testing CVA (cerebral vascular accident) 10/13/2024 Assessment & Plan (01/04/2025 12:32 PM EDT): History of CVA about 13 years ago with no residual effects. She did follow with a neurologist however stopped seeing them back in 2019. She is maintained on simvastatin as well as baby aspirin. Assessment & Plan (10/13/2024 10:52 AM EDT): History of CVA about 13 years ago with no residual effects. She did follow with a neurologist however stopped seeing them back in 2019. She is maintained on simvastatin as well as baby aspirin. Annual physical exam 08/18/2024 Assessment & Plan (10/13/2024 10:52 AM EDT): Annual physical exam. Labs reviewed during her physical. The patient will call to set up her colonoscopy. She is due for mammogram in March 2025 which she will set up through [facility]. DXA can ordered which she will have done at [facility]. Follow-up annual physical 1 year Assessment & Plan (08/18/2024 12:48 PM EST): In preparation of her upcoming physical we will obtain a CMP, fasting glucose, TSH, and lipid panel. Hyperlipidemia 01/25/2024 Assessment & Plan (01/04/2025 12:33 PM EDT): Patient is noted to be on simvastatin 20 mg p.o. daily which we will continue. Her last lipid panel showed an LDL of 66 and triglycerides of 69 on these most recent labs this month. We will repeat in 3 months time. Assessment & Plan (10/13/2024 10:52 AM EDT): Patient is noted to be on simvastatin 20 mg p.o. daily which we will continue. Her last lipid panel showed an LDL of 66 and triglycerides of 69 on these most recent labs this month. We will repeat in 3 months time. Assessment & Plan (08/18/2024 12:47 PM EST): Patient had her last lipid panel back in February 2024 which was well within normal limits. We will continue her simvastatin 20 mg daily and repeat a lipid panel Assessment & Plan (01/25/2024 9:48 PM EDT): :Lipid panel Continue on zocor 20mg daily Thyroid nodule 01/25/2024 Assessment & Plan (01/04/2025 12:33 PM EDT): Patient with known thyroid nodules with her last TSH being 3.73 back in September 2024. We will repeat a TSH level. She is not currently on any medications. Assessment & Plan (08/18/2024 12:48 PM EST): Patient with known thyroid nodules with her last TSH being 3.55 back in February 2024. We will repeat a TSH level. She is not currently on any medications. Assessment & Plan (01/25/2024 9:49 PM EDT): Recent biopsy of thyroid nodule which was benign. TSH level back in January 2023 showed 3.45. Repeat TSH level Anxiety and depression 12/31/2017 Assessment & Plan (01/04/2025 12:35 PM EDT): Continue bupropion 300 mg daily and Cymbalta 30 mg p.o. twice daily Assessment & Plan (10/13/2024 10:52 AM EDT): Patient with a history of anxiety and depression who is on Wellbutrin XL 300 mg and Cymbalta 30 mg p.o. twice daily. She states that she does have some stress at home due to a relationship as her spouse is very stubborn and is set in his own way. She does not follow with a therapist but has a good support system with her friends. Her PHQ-9 score is 10 today. We will continue her on Wellbutrin XL 300 mg and Cymbalta 30 mg p.o. twice daily Assessment & Plan (08/18/2024 12:48 PM EST): Patient with noted anxiety and depression who is maintained on Cymbalta 30 mg p.o. twice daily and Wellbutrin 300 mg daily. Assessment & Plan (01/25/2024 9:51 PM EDT): With depression stable on Cymbalta and Wellbutrin Chronic kidney disease 12/31/2017 Assessment & Plan (10/13/2024 10:52 AM EDT): Patient follows closely with [facility] nephrology. She underwent recent labs which showed stable creatinine of 1.3 and a BUN of 21. She has an upcoming appointment in May 2025. Assessment & Plan (01/25/2024 9:50 PM EDT): Patient follows with [facility] yearly Gastroesophageal reflux disease without esophagi tis 12/31/2017 Assessment & Plan (10/13/2024 10:52 AM EDT): Well-controlled on Prilosec however patient did have a couple of episodes of vomiting that were uncharacteristic she states. She mentioned that 1 time could have been secondary to the son as she had been out in the heat all day. However the other 2 instances that she experienced and so winter were out of the blue with no changes in her diet. No new foods. Her last EGD was years ago and therefore I have recommended that she follow-up with Dr. Kate to undergo repeat EGD which she will call him. Assessment & Plan (01/25/2024 9:49 PM EDT): Continue prilosec Osteopenia 12/31/2017 Assessment & Plan (10/13/2024 10:52 AM EDT): DXA scan ordered, would like to have done at [facility] Resolved Problems Problem Noted Date Diagnosed Date Resolved Date Pre-op evaluation 12/14/2024 01/04/2025 Assessment & Plan (12/16/2024 9:09 AM EDT): Patient with a past medical history of anxiety, depression, CKD followed by nephrology, atrophy of left kidney, GERD, hyperlipidemia, hypothyroidism, thyroid nodules, neuropathy, OA, PVD, Raynaud's disease and CVA who presents today for preop evaluation. Patient noted to have control of her hyperlipidemia with her last LDL showing 66 and triglycerides of 69 on laboratory data back in September 2024. She is maintained on simvastatin. Patient follows with nephrology with her last nephrology appointment in May 2024 as an expected to see her design/animation instructor in May 2025 with her last creatinine of 1.30 and BUN of 21on September labs. She carries a history of CVA back 13 years ago with no residual symptoms. She is maintained on simvastatin 20 mg daily and aspirin 81 mg daily. I did explain to the patient that she will need to hold her aspirin up to 3 days prior to her dental procedures due to the risk of increased bleeding time. However I did explain to the patient the risks of holding her aspirin given her history of stroke in the past. She is aware and understands these risks. -EKG obtained in the office reveals normal sinus rhythm without ST-T wave abnormalities. Heart rate 63 -Obtained a CBC, CMP, CRP, and hemoglobin A1c to the lab which is noted to be within normal limits with the exception of a slight elevated BUN which has been consistently elevated. Her creatinine is noted at 1.2 which is within normal limits. I advised the patient to continue to drink plenty of fluids to stay well-hydrated. According to the ACP perioperative risk scale the patient is placed in an intermediate risk for intraoperative and postoperative complications. Patient is medically cleared for her scheduled dental extractions, implants and bone grafting. Urinary frequency 01/25/2024 01/04/2025 Assessment & Plan (01/25/2024 9:55 PM EDT): UA revealed Positive leukocytes with micro showing numerous WBCs. Given her symptoms I have ordered a urine culture and started her on keflex 500mg bid x 5 days (renally dosed) Stutter 08/26/2023 01/25/2024 Small kidney 05/31/2021 01/25/2024 Multinodular thyroid 01/05/2018 024 Assessment & Plan (01/05/2018 8:25 AM EDT): Regular f/u with endocrine. Due for thyroid sono. Dysthymia 12/31/2017 01/25/2024 History of stroke 12/31/2017 01/25/2024 Assessment & Plan (12/21/2019 9:47 AM EDT): 2012- (Fell- ischemic stroke a few weeks later) Iliotibial band syndrome aff ecting left lower leg 12/31/2017 01/25/2024 Mixed hyperlipidemia 12/31/2017 024 Neuropathy 12/31/2017 01/25/2024 Psychophysiological insomnia 12/31/2017 01/25/2024 PVD (peripheral vascular disease) 12/31/2017 01/25/2024 Renal insufficiency 12/31/2017 01/25/20 Trochanteric bursitis of left hip 12/31/2017 01/25/2024 Varicose veins of other specified sites 12/31/2017 01/25/2024 Vitamin D deficiency 12/31/2017 024 Leukopenia 12/31/2017 01/25/2024 Encounters Date Type Department Care Team Description 04/11/2025 10:20 AM EDT Office Visit [facility] Internal Medicine [address] [facility] [place] [address] Wale Ariza PA-C Thyroid nodule (Primary Dx); Mixed hyperlipidemia; Anxiety and depression; Cerebrovascular accident (CVA), unspecified mechanism 04/04/2025 10:27 AM EDT - 04/04/2025 11:59 PM EDT Hospital Encounter [facility] [address] [place] [address] Wale Ariza PA-C Discharge Disposition: Home or Self Care 03/10/2025 Telephone [facility] Internal Medicine [address] [facility] [place] [address] Wale Ariza PA-C Results 03/10/2025 Orders Only [facility] Internal Medicine [address] [facility] [place] [address] Kathrin Malik MD 03/07/2025 Orders Only [facility] Internal [facility] [address] [facility] [place] [address] Kathrin Malik MD 03/01/2025 Orders Only [facility] Internal [facility] [address] [facility] [place] [address] Provider, MD Kathrin from Last 3 Months Immunizations Immunization Administration Dates Next Due COVID-19 (Pre-05/18) Moderna Vaccine, mRNA, PF 09/21/2020,08/24/2020 INFLUENZA, SPLIT VIRUS, TRIV ALENT W/ PRESERVATIVE IM 03/27/2021 Influenza High-Dose Quadriva lent Preservative Free IM 05/08/2023,05/20/2022,05/14/2021,04/23 Influenza High-Dose Trivalen t Preservative Free IM 03/27/2024,06/02/2019,05/25/2018,05/20,05/12/2014 Pneumococcal conjugate PCV13 01/30/2015 Pneumococcal polysaccharide PPSV23 09/21/2019, RSV Vaccine (monovalent, adjuvanted) 09/08/2023 Tdap 05/01/2022,02/17/2012 Zoster recombinant 12/31/2021,07/01/2021 Family History Medical History Relation Comments Ulcerative colitis Brother 1 Arthritis Brother 2 Pulmonary embolism Brother 2 Psoriatic arthritis Daughter 1 Lyme disease Daughter 2 Aortic aneurysm Father Arthritis Father Atrial fibrillation Father CABG Father Cancer Father Colon cancer Father Coronary artery disease Father Heart failure Father Hip fracture Father Hypertension Father Kidney disease Father Arthritis Mother Atrial fibrillation Mother CV disease Mother Heart attack Mother Heart failure Mother Hyperlipidemia Mother Hypertension Mother Phlebitis disease Mother Psoriasis Mother Psoriatic arthritis Mother Varicose veins Mother Cancer Sibling Ulcerative colitis Sister Relation Status Comments Brother 1 (Age 61) ?OK sudden luisa th Brother 2 Alive Daughter 1 Alive Daughter 2 Alive Father Mother Sibling Sister Alive Social History Tobacco Use Types Packs/Day Years Used Date Smoking Tobacco: Former Cigarettes Q uit: 1990 Smokeless Tobacco: Never Tobacco Cessation:Counseling Given: Not Answered Alcohol Use Standard Drinks/Week Comments Yes 1 (1 standard drink = 0.6 oz [...] Orientation Straight 09/13/2021 12 :43 PM EST Last Filed Vital Signs Vital Sign Reading Time Taken Comments Blood Pressure 122/80 04/11/2025 10:19 AM EDT Pulse 70 04/11/2025 10:19 AM EDT Temperature 36.7 C (98 F) 07/07/2023 10:22 AM EST Respiratory Rate 16 04/11/2025 10:19 AM EDT Oxygen Saturation 98% 04/11/2025 10:19 AM EDT Inhaled Oxygen Concentration - - Weight 79.4 kg (175 lb) 04/11/2025 10:19 AM EDT Height 160 cm (5' 2.99 ) 04/11/2025 10:19 AM EDT Body Mass Index 31.01 04/11/2025 10:19 AM EDT Plan of Treatment Upcoming Encounters Date Type Department Care Team (Late st Contact Info) Description 07/10/2025 9:40 AM EST Office Visit [facility] Internal Medicine [address] [place] [address] Wale Ariza PA-C [address] [place] [address] [email or web address] Health Maintenance Due Date Last Done Comments COLOGUARD 1993 FIT TEST 1993 FOBT 1993 SIGMOIDOSCOPY 1993 VIRTUAL COLONOSCOPY 1993 INFLUENZA VACCINE (#1) 2025 , 05/08/2023, 05/20/2022, Additional history exists COVID-19 VACCINE ( season) 2025 04/17/2023, 05/20/2022, 02/04/2022, Additional history exists REPEAT PHQ 05/10/2025 04/10/2025, 04/10/2025 LIPID PANEL 04/04/2026 04/04/2025, 03/0 12/2024, 02/25/2024, Additional history exists DEPRESSION SCREENING 04/10/2026 04/10/2025, 04/10/20 SMOKING Hx and SMOKELESS TOBACCO SCREENING 04/11/2026 04/11/2025 FOLLOW UP BONE DENSITY TESTING 03/07/2027 03/07/2025, 09/24/2022, 01/18/2021, Additional history exists COLONOSCOPY 02/17/2030 02/17/2025, 06/11/2016 COLORECTAL CANCER SCREENING 02/17/2030 Adult Td,Tdap Booster 05/01/2032 05/01/2022, 012 HEPATITIS C SCREENING Completed 02/22/2018 PNEUMOCOCCAL VACCINES (50+ years) Completed 09/21/2019, 01/30/2015, 02/17/2012 ZOSTER VACCINES Completed 12/31/2021, 07/01/2021 RSV VACCINE Completed 09/08/2023 OSTEOPOROSIS SCREENING INITIAL (ONE-TIME) Completed 03/07/2025, 09/24/2022, 01/18/2021, Additional history exists HEPATITIS A VACCINES Aged Out No long er eligible based on patient's age to complete this topic HIB VACCINES Aged Out No longer eligi ble based on patient's age to complete this topic MENINGOCOCCAL VACCINES (ACWY) Aged Out No longer eligible based on patient's age to complete this topic MENINGOCOCCAL VACCINES (B) Aged Out N o longer eligible based on patient's age to complete this topic Medical Devices Not on file Procedures Procedure Name Priority Date/Time Associated Diagnosis Comments FREE T4 Routine 04/04/2025 10:27 AM EDT TSH WITH REFLEX Routine 04/04/2025 10:27 AM EDT Thyroid nodule LIPID PANEL Routine 04/04/2025 10:27 AM EDT Hyperlipidemia HM DEXA SCAN Routine 03/07/2025 2:47 PM EDT BUN Routine 02/28/2025 11:25 AM EDT CREATININE (RANDOM URINE) Routine 02/28/2025 11:25 AM EDT COLONOSCOPY FOR RESULT ENTRY ONLY Routine 02/17/2025 6:59 AM EDT HEPATITIS C ANTIBODY, QUALITATIVE Routine 02/22/2018 10:42 AM EDT Encounter for hepatitis C screening test for low risk patient from Last 3 Months or Most Recently Relevant to Health Maintenance Results * (ABNORMAL) TSH with reflex (04/04/2025 10:27 AM EDT) TSH 4.33(H) 0.27 - 4.20 uIU/mL [facility] Blood 04/04/2025 10:2 7 AM EDT 04/04/2025 10:29 AM EDT us Wale Ariza PA-C LAB BLOOD ORDERABLES Final Re sult Performing Organization Address City/[facility]/ZIP Co de Phone Number [address] [address] * Free T4 (04/04/2025 10:27 AM EDT) FREE T4 1.0 0.9 - 1.7 ng/dL [facility] 04/04/2025 10:2 7 AM EDT 04/04/2025 10:29 AM EDT us Wale Ariza PA-C LAB BLOOD ORDERABLES Final Re sult Performing Organization Address [facility] de Phone Number [address] [address] * (ABNORMAL) Lipid panel (04/04/2025 10:27 AM EDT) HDL 98 mg/dL [facility] Comment: Interpretation <40 mg/dL: Low HDL cholesterol (major risk factor for CHD) Greater than or equal to 60 mg/dL: High HDL cholesterol ( negative risk factor for CHD) HDL - cholesterol is affected by a number of factors, e.g. smoking, excerise, hormones, sex and age. CHOLESTEROL 193 0 - 240 mg/dL [facility] TRIGLYCERIDES 65 30 - 160 mg/dL [facility] LDL 82 50 - 129 mg/dL [facility] Comment: LDL levels in terms of risk for coronary heart disease: <100 mg/dL: Optimal 100-129 mg/dL: Near or above optimal 130-159 mg/dL: Borderline high 160-189 mg/dL: High >190 mg/dL: Very High CARDIAC RISK RATIO 2.0(L) 3.3 - 4.4 [facility] Blood 04/04/2025 10:2 7 AM EDT 04/04/2025 10:28 AM EDT us Wale Ariza PA-C LAB BLOOD ORDERABLES Final Re sult Performing Organization Address City/[facility]/ZIP Co de Phone Number [address] [address] * HM DEXA SCAN (03/07/2025 2:47 PM EDT) Historical Provider HEALTH MAINTENANCE Edited Result - Final * Creatinine, random urine (02/28/2025 11:25 AM EDT) Urine Historical Provider URINE ORDERABLES Final Re sult * BUN (02/28/2025 11:25 AM EDT) Result [facility] Historical Provider LAB BLOOD ORDERABLES Leisa l Result * COLONOSCOPY FOR RESULT ENTRY ONLY (02/17/2025 6:59 AM EDT) Historical Provider HEALTH MAINTENANCE Final Result * Hepatitis C antibody, qualitative (02/22/2018 10:42 AM EDT) Blood Glo Roberts NP LAB BLOOD ORDERABLES Final Resu lt [address] [address] from Last 3 Months or Most Recently Relevant to Health Maintenance Insurance [employer] HMO [place] [address] [place] [address] [place] [address] MEDICARE HMO REPLACEMENT [facility] MEDICARE HMO [place] [address] [place] [address] [place] [address] [address] [place] [address] MEDICARE HMO REPLACEMENT [facility] MEDICARE HMO REPLACEMENT [employer] HMO REPLACEMENT Care Teams Bicycle Subassembler Relationship Specialty Start Date End Date Wale Ariza PA-C [address] [place] [phone] [email or web address] PCP - General Physician Watermelon Inspector 12/28/23 Titi Ayala MD [address] [place] [id number] Nephrology 12/20/20 Additional Source Comments The information contained in this document represents components of the legal health record. It is not the complete legal health record.[facility]
== END 2025-04-22 08:03 | disposition home or self-care (01) ==
LOC: HO.MAMMO 08:02
PROVIDERS: PCP Physician Assistant Surgical; Visit Provider Physician Assistant Surgical
DX: Z12.31 Encounter for screening mammogram for malignant neoplasm of breast (principal)
CPT/HCPCS: 77063; 77067

== ENCOUNTER → 2025-04-22 08:30 | Outpatient (BNV) | payer MEDICARE, SELFPAY | PROVIDERS: PCP Physician Assistant Surgical; Visit Provider Internal Medicine | DX: Z12.31 Encounter for screening mammogram for malignant neoplasm of breast (principal) | CPT/HCPCS: 77063; 77067 ==

== ENCOUNTER 2025-06-06 09:54 | Outpatient (AMB) | payer MEDICARE, SELFPAY ==
--- OUTSIDE RECORDS SUMMARY | 2025-02-17 03:10 | XMS_ITS ---
Author Organization [facility] Address [address] [place] [address] Care Team Providers Care Hollow Handle Bench Worker Name Role Phone Wale Ariza M.D. Primary Care Provider Julio [place] Jr [phone] REASON FOR VISIT screening Encounters Encounter Location Date Provider Diagnosis [facility] Outpatient [address] [place] [id number] 02/17/2025 Julio Kate Jr Plan Of Treatment No Information Progress Notes * JONATHAN MORANDOB:08/1950 (74 yo F)Acc No.[id number]:02/17/2025 COLON WITH MAC Patient: Feli LARA JONATHAN Tang Provider: Jovita [place] MD :1950 A ge:74 Y S ex:Female Date:02/17/2025 Address:[address] [place], [place] [id number] Pcp:Wale Ariza M.D. Subjective: * Chief Complaints: * 1 . Screening. * Medical History: Objective: * Vitals: Assessment: Plan: * Treatment: * * The named appointment provid er may or may not be the originator of this progress note, and it is not deemed complete until electronically signed by the appointment provider. Sign off status: Pending * Provider: Jovita Kate MD Date: 0 02/17/2025 Generated for Printi ng/Familenag/eTransmitting on: 1 08/06/2024 11:16 AM EST
[2025-06-06 09:57] VITALS: BP 142/72; BMI 29.9
--- NOTE | 2025-06-06 09:57 | HO.NEPHOV ---
Vital Signs 06/06/25 09:57 06/06/25 10:11 Height 5 ft 4 in Weight 174 lb BMI 29.9 BP 142/72 H 110/60 Blood Pressure Location Lt brachial Lt brachial Position Sitting Sitting Intake Visit Reasons: CKD Instructor Product Inspection Required: No Accompanied by: Self / Same As Patient Allergies NSAIDS (Non-Steroidal Anti-Inflamma (NSAIDS (NON-STEROIDAL ANTI-INFLAMMA) Allergy (Unknown, Verified 06/06/25 10:01) CHRONIC KIDNEY DISEASE, UNABLE TO TAKE hydromorphone (From Dilaudid) Adverse Reaction (Mild, Verified 06/06/25 10:01) Vomiting morphine (MORPHINE) Adverse Reaction (Mild, Verified 06/06/25 10:01) VOMITING HPI Comments Details: 74-year-old woman with a history of atrophic left kidney he is here for annual follow-up. Today she has no new complaints. Her fluid intake has been adequate. She had a thyroid biopsy -reportedly negative She has been taking care for . And admits to inadequate p.o. fluid intake 06/06/25 The patient is a 74-year-old female presenting with concerns regarding kidney function. The patient has experienced mild fluctuations in creatinine levels, with the highest recorded at 1.38 mg/dL in 2020, and recent levels at 1.22 mg/dL, indicating a stable trend over the years. There is a history of trace hematuria, with recent urine studies showing no protein and a reduction in blood traces compared to previous tests. [facility] Medical History Ataxia Mack thyroiditis CVA (cerebral vascular accident) Elevated cholesterol Chronic renal insufficiency Depression GERD (gastroesophageal reflux disease) Surgical History History of surgery on wrist History of back surgery History of esophagogastroduodenoscopy (EGD) H/O colonoscopy Hx of appendectomy H/O total hysterectomy Hx of tonsillectomy H/O tubal ligation Family History Father Colon cancer CHF (congestive heart failure) Kidney disease Mother CHF (congestive heart failure) Stroke Hypertension Social History Household Members: Spouse Alcohol intake: current Alcohol intake frequency: a few times a week Patient Tobacco Use Status: Former Tobacco user Tobacco use type: Cigarette Physical Exam Vital Signs: Last Vital Signs BP 110/60 06/06/25 10:11 BMI result Body Mass Index 29.9 Comfortable Neck supple no JVD. Lungs entry equal no rales. Heart S1-S2 heard no gallop or rub. Abdomen soft nontender. Neuro alert awake oriented. No asterixis. Extremities no edema. Results Reviewed Nephrology Results: Hgb, (12.0-16.0) 13.9 g/dl 02/28/25 WBC, (4.8-10.8) 4.6 X10*3/uL L 02/28/25 Plt Count, (160-400) 241 X10*3/uL 02/28/25 Sodium, (135-145) 139 mmol/L 06/01/24 Potassium, (3.3-5.1) 4.9 mmol/L 06/01/24 Chloride, (96-108) 107 mmol/L 06/01/24 Carbon Dioxide, (22-29) 26 mmol/L 06/01/24 BUN, (9-16) 22 mg/dL H 02/28/25 Creatinine, (0.5-1.4) 1.22 mg/dL 02/28/25 Calcium, (8.4-10.2) 9.5 mg/dL 06/01/24 Urine Protein, (Neg-Trace) Negative mg/dL 02/28/25 Urine Creatinine 109.48 mg/dL 02/28/25 Renal US 06/27/21 Assessment & Plan Assessment & Plan (1) CKD (chronic kidney disease) stage 2, GFR 60-89 ml/min: Code(s): N18.2 - Chronic kidney disease, stage 2 (mild) Category: Medical Plan: Mild CKD in a setting of atrophic left kidney. Right kidney appears normal. Urine sediments have been bland. Goal is to slow the progression of disease. Creatinine close to baseline Maintain intake more than output Continue to avoid nephrotoxic agents including NSAIDs. No changes were made to were medication. Blood pressure is acceptable Orders: Orders Basic Metabolic Panel 1 Year N18.2 - Chronic kidney disease, stage 2 (mild) Creatinine Urine 1 Year N18.2 - Chronic kidney disease, stage 2 (mild) UA and rflx microscopic 1 Year N18.2 - Chronic kidney disease, stage 2 (mild) Total Protein Urine Random 1 Year N18.2 - Chronic kidney disease, stage 2 (mild) Coding Level of Care Code Est Pt Level 4 (81892) Diagnoses CKD (chronic kidney disease) stage 2, GFR 60-89 ml/min N18.2
[2025-06-06 10:11] VITALS: BP 110/60
--- OUTSIDE RECORDS SUMMARY | 2025-06-06 11:16 | XMS_ITS | Encounter Summary ---
Author Organization [facility] Address [address] [place] [address] Phone Care Team Providers Care Supervising Law Enforcement Analyst Name Role Phone Titi Ayala MD Unavailable [phone] Wale Ariza PA-C Primary Care Provider [phone] Encounter Details Date Type Department Care Team (Late st Contact Info) Description 12/13/2024 Telephone [facility] [address] [place], [place] [phone] Wale Ariza PA-C [address] [place] [address] [email or web address] Social History Tobacco Use Types Packs/Day Years [...] Description 07/10/2025 9:40 AM EST Office Visit [facility] Internal Medicine [address] [place] [address] Wale Ariza PA-C [address] [place] [address] documented as of this encounter Visit Diagnoses Not on filedocumented in this encounter Additional Health Concerns Assessment Noted Time PHQ-9 Depression Total Score: 9 12/14/19 25 9:06 PM EDT PHQ-2 Depression Total Score: 3 12/14/19 25 9:06 PM EDT documented as of this encounter Care Teams Supervising Law Enforcement Analyst Relationship Specialty Start Date End Date Wale Ariza PA-C [address] [place] [address] PCP - General Physician Float Nurse 12/28/23 Titi Ayala MD [address] [place] [address] Nephrology 12/20/20 documented as of this encounter Additional Source Comments The information contained in this document represents components of the legal health record. It is not the complete legal health record.[facility]
--- OUTSIDE RECORDS SUMMARY | 2025-06-06 11:16 | XMS_ITS | Clinical Summary ---
Author Organization [facility] Address [address] [place] [address] Phone Care Team Providers Care Rainbow Trout Farm Manager Name Role Phone Titi Ayala MD Unavailable [phone] Wale Ariza PA-C Primary Care Provider [phone] Allergies Active Allergy Reactions Criticality Noted Date [...] 2025 which she will set up through [facility]. DXA can ordered which she will have done at [facility]. Follow-up annual physical 1 year Assessment [...] 10:52 AM EDT): Patient follows closely with [facility] nephrology. She underwent recent labs which showed stable creatinine of 1.3 and a BUN of 21. She has an upcoming appointment in May 2025. 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 with her last creatinine [...] disease) 12/31/2017 01/25/2024 Renal insufficiency 12/31/2017 01/25/20 24 Trochanteric bursitis of left hip 12/31/2017 01/25/2024 Varicose veins of other specified sites 12/31/2017 01/25/2024 Vitamin D deficiency 12/31/2017 024 Leukopenia 12/31/2017 01/25/2024 Encounters Date Type Department Care Team Description 05/09/2025 10:22 AM EDT - 05/09/2025 11:59 PM EDT Hospital Encounter [facility] [place] [address] [facility] [place] [address] Wale Ariza PA-C Discharge Disposition: Home or Self Care 04/25/2025 Orders Only [facility] Internal Medicine [address] [facility] [place] [address] ProviderKathrin MD 04/11/2025 10:20 AM EDT Office Visit [facility] [address] [place] [address] Wale Ariza PA-C Thyroid nodule (Primary Dx); Mixed hyperlipidemia; Anxiety and depression; Cerebrovascular accident (CVA), unspecified mechanism 04/04/2025 10:27 AM EDT - 04/04/2025 11:59 PM EDT Hospital Encounter [facility] [place] [address] [place] [address] Wale Ariza PA-C Discharge Disposition: Home or Self Care 03/10/2025 Telephone [facility] Internal [facility] [address] [facility] [place] [address] Wale Ariza PA-C Results 03/10/2025 Orders Only [facility] Internal [facility] [address] [place] [address] ProviderKathrin MD 03/07/2025 Orders Only [facility] Internal [facility] [address] [place] [address] Provider, MD Kathrin from Last 3 Months Immunizations Immunization Administration Dates Next Due COVID-19 (Pre-05/18) Moderna Vaccine, mRNA, PF 09/21/2020,08/24/2020 COVID-19 Moderna Spikevax Vaccine 12+ 05/08/2025 INFLUENZA, SPLIT VIRUS, TRIV ALENT W/ PRESERVATIVE IM 03/27/2021 Influenza High-Dose Quadriva lent Preservative Free IM 05/08/2023,05/20/2022,05/14/2021,04/23 Influenza High-Dose Trivalen t Preservative Free IM 05/08/2025,03/27/2024,06/02/2019,05/25,05/20/2016,05/12/2014 Pneumococcal conjugate PCV13 01/30/2015 Pneumococcal polysaccharide PPSV23 [...] Relation Status Comments Brother 1 (Age 61) ?PA sudden luisa th Brother 2 Alive Daughter [...] Description 07/10/2025 9:40 AM EST Office Visit [facility] Internal Medicine [address] [place] [address] Wale Ariza PA-C [address] [place] [address] [email or web address] Health Maintenance Due Date Last Done Comments COLOGUARD 1993 FIT TEST 1993 FOBT 1993 SIGMOIDOSCOPY 1993 VIRTUAL COLONOSCOPY 1993 REPEAT PHQ 05/10/2025 04/10/2025, 04/10/2025 COVID-19 VACCINE ( season) 2025 05/08/2025, 04/17/2023, 05/20/2022, Additional history exists LIPID PANEL 04/04/2026 04/04/2025, 03/0 12/2024, 02/25/2024, [...] Completed 03/07/2025, 09/24/2022, 01/18/2021, Additional history exists INFLUENZA VACCINE Completed 05/08/2025, , 05/08/2023, Additional history exists HEPATITIS A VACCINES Aged [...] Procedure Name Priority Date/Time Associated Diagnosis Comments TSH WITH REFLEX Routine 05/09/2025 10:22 AM EDT Thyroid nodule MAMMOGRAPHY Routine 04/22/2025 12:41 PM EDT FREE T4 Routine 04/04/2025 10:27 AM EDT TSH WITH REFLEX Routine 04/04/2025 10:27 AM EDT Thyroid nodule LIPID PANEL Routine 04/04/2025 10:27 AM EDT Hyperlipidemia DEXA SCAN Routine 03/07/2025 2:47 PM EDT COLONOSCOPY FOR RESULT ENTRY ONLY Routine 02/17/2025 6:59 AM EDT HEPATITIS C ANTIBODY, QUALITATIVE Routine 02/22/2018 10:42 AM EDT Encounter for hepatitis C screening test for low risk patient from Last 3 Months or Most Recently Relevant to Health Maintenance Results * TSH with reflex (05/09/2025 10:22 AM EDT) Only the most recent of2 resultswithin the time period is included. TSH 3.93 0.27 - 4.20 uIU/mL [facility] Blood 05/09/2025 10:2 2 AM EDT 05/09/2025 10:26 AM EDT Wale Ariza PA-C LAB BLOOD BKR ORDERABLES Leisa l Result Performing Organization Address City/[facility]/ZIP Co de Phone Number [address] [address] * HM MAMMOGRAPHY FOR RESULT ENTRY ONLY (04/22/2025 12:41 PM EDT) Historical Provider HEALTH MAINTENANCE Final Result * Free T4 (04/04/2025 10:27 AM EDT) FREE T4 1.0 0.9 - 1.7 ng/dL [facility] 04/04/2025 10:2 7 AM EDT 04/04/2025 10:29 AM EDT Wale Ariza PA-C LAB BLOOD BKR ORDERABLES Leisa l Result Performing Organization Address City/[facility]/ZIP Co de Phone Number [address] [address] * (ABNORMAL) Lipid panel (04/04/2025 10:27 AM EDT) HDL 98 mg/dL [facility] Comment: Interpretation <40 mg/dL: Low HDL cholesterol (major risk factor for CHD) Greater than or equal to 60 mg/dL: High HDL cholesterol ( negative risk factor for CHD) HDL - cholesterol is affected by a number of factors, e.g. smoking, excerise, hormones, sex and age. CHOLESTEROL 193 0 - 240 mg/dL [facility] TRIGLYCERIDES 65 30 - 160 mg/dL [facility] LDL 82 50 - 129 mg/dL [facility] Comment: LDL levels in terms of risk for coronary heart disease: <100 mg/dL: Optimal 100-129 mg/dL: Near or above optimal 130-159 mg/dL: Borderline high 160-189 mg/dL: High >190 mg/dL: Very High CARDIAC RISK RATIO 2.0(L) 3.3 - 4.4 C [facility] Blood 04/04/2025 10:2 7 AM EDT 04/04/2025 10:28 AM EDT us Wale Ariza PA-C LAB BLOOD BKR ORDERABLES Leisa l Result Performing Organization Address City/[facility]/ZIP Co de Phone Number [address] [address] * DEXA SCAN (03/07/2025 2:47 PM EDT) Historical Provider HEALTH MAINTENANCE Edited Result - Final * COLONOSCOPY FOR RESULT ENTRY ONLY (02/17/2025 6:59 AM EDT) Historical Provider HEALTH MAINTENANCE Final Result * Hepatitis C antibody, qualitative (02/22/2018 10:42 AM EDT) Blood us Glo Roberts NP LAB BLOOD BKR ORDERABLES Final Result Performing Organization Address City/[facility]/ZIP Co de Phone Number [address] [address] from Last 3 Months or Most Recently Relevant to Health Maintenance Insurance [employer]ACEMENT MEDICARE HMO REPLACEMENT MEDICARE HMO REPLACEMENT MEDICARE HMO REPLACEMENT [facility] MEDICARE HMO REPLACEMENT [employer] [place]PLACEMENT Care Teams Rainbow Trout Farm Manager Relationship Specialty Start Date End Date Wale Ariza PA-C [address] [place] [address] PCP - General Physician Sld Inclusion Teacher 12/28/23 Titi Ayala MD [address] [place] [address] Nephrology 12/20/20 Additional Source Comments The information contained in this document represents components of the legal health record. It is not the complete legal health record.[facility]
--- OUTSIDE RECORDS SUMMARY | 2025-06-06 11:16 | XMS_ITS | Patient Health Record ---
Author Organization [facility] Address [address] [place] [address] Care Team Providers Care Roastmaster Name Role Phone Wale Ariza M.D. Primary Care Provider Julio Madison Jr Unavailable [phone] Allergies Allergen (clinical drug ingredient) Drug/Non Drug [...] tablet in the morning Orally Once a day; Duration: 90 days Active Calcium Active [place] 3 Not-Taking Biotin 5000 Active [place] Not-Taking [...] Problem Status W/U Status Risk Notes Problem Colon cancer screening (489733027) Colon cancer screening (Z12.11) Active confirmed Problem Gas (57547195) Gas (R14.3) Active confirmed Problem Gastroesophageal reflux disease (452955626) GERD (gastroesopha geal reflux disease) (K21.9) Active confirmed Vital Signs Temperature 96.6 degrees Fahrenheit 01/18/2025 Blood pressure diastolic 01 mm Hg 01/18/2025 Height 64.25 in 01/18/2025 Blood pressure systolic 001 mm Hg 01/18/2025 Weight 177.4 lbs 01/18/2025 BMI 30.21 kg/m2 01/18/2025 Encounters Encounter Location Date Provider Diagnosis [facility] [place] Out[place] [address] [place], [place] [phone] 02/17/2025 Julio Kate Jr [facility] [address] [place] [address] 01/18/2025 Julio Kate Jr Colon cancer screening [...] Insured Coverage Start Date Coverage End Date [facility] [address] [place] [address] [id number] JONATHAN MORAN Self - patient is [...]
== END 2025-06-06 10:19 | disposition home or self-care (01) ==
LOC: HO.HKA 09:55
PROVIDERS: Visit Provider Internal Medicine Hypertension Specialist
DX: N18.2 Chronic kidney disease, stage 2 (mild) (principal)
CPT/HCPCS: 99214

== ENCOUNTER → 2025-06-06 09:54 | Outpatient (BNVA) | payer MEDICARE, SELFPAY | PROVIDERS: Visit Provider Internal Medicine Hypertension Specialist | DX: N18.2 Chronic kidney disease, stage 2 (mild) (principal) | CPT/HCPCS: 99212 ==